=== PATIENT | female | born 1955 | race Caucasian/White ===

== ENCOUNTER 2016-12-14 09:25 | Emergency (ER) | payer MEDICAID, OTHER ==
[~2016-12-14] VITALS: Ht 154.9 cm; Wt 52.5 kg
[~2016-12-14 09:25] MED LIST: AMLO10 PO; CARV3.125 PO; CLON-352 PO; ELIP667T PO; RENATAB5 PO; SYNT25TA PO; TYLE500T PO
[2016-12-14 09:27] VITALS: BP 192/91; PULSE 83; RESP 15; TEMP 98.2; O2SAT 98
[2016-12-14 09:43] VITALS: BP 176/86; PULSE 77; RESP 18; O2SAT 98
[2016-12-14 09:51] VITALS: BP 176/86; PULSE 76; PULSE 77; RESP 18; O2SAT 99
[2016-12-14] MEDS ORDERED: DIALCAP PO (09:59)
[2016-12-14] MEDS ORDERED: AMLO10TA2 PO (09:59)
[2016-12-14] MEDS ORDERED: CALC667C (09:59)
[2016-12-14] MEDS ORDERED: LEVO25TA4 PO (09:59)
[2016-12-14] MEDS ORDERED: CARV3.12 PO (09:59)
[2016-12-14] MEDS ORDERED: CLON0.1T PO (09:59)
[2016-12-14] MEDS ORDERED: SODIUM CHLORIDE 0.9% FLUSH 10 ML FLUSH IVF PRN (10:00)
--- NOTE | 2016-12-14 10:04 | PD ---
HPI Chief Complaint: Abdominal Pain Time Seen by Provider: 09:48 Travel History International Travel<30 days: No Contact w/Intl Traveler<30days: No Traveled to known affect area: No History of Present Illness HPI This is a 61-year-old female with history of renal failure, dialysis dependent, presents today with complaints of nausea and loose stools 1 week. Patient reports she started with vomiting roughly 6-7 days ago. She said this is then followed by loose stools. She denies any watery stools. She states that she's been feeling weak. She feels as though she is dehydrated. She was scheduled to have dialysis today however was too weak to go. There is no reported fevers , chills. There is no reported cough. The patient states he makes very very little urine but denies any change in the urine output. PFSH Past Medical History Cancer: No Cardiovascular Problems: Yes (HTN ) Chest Pain: No Congestive Heart Failure: Yes Diabetes: No Endocrine: Yes Gastrointestinal Disorders: Yes GERD: No Genitourinary: No Hepatitis: No Hiatal Hernia: No Hypertension: Yes Immune Disorder: No Musculoskeletal: No Neurologic: No Reproductive: No Respiratory: No Renal Failure: Yes (L PERM CATH, R AV FISTULA) Thyroid Disease: Yes (LOW) Menopausal: Yes Past Surgical History AICD: No Joint Replacement: No Pacemaker: No Other Surgery: Yes Social History Alcohol Use: No Tobacco Use: No Substance Use: No Allergies-Medications (Allergen,Severity, Reaction): Coded Allergies: penicillin G (Unverified Allergy, Severe, 12/14/16) Reported Meds & Prescriptions Reported Meds & Active Scripts Active Zofran (Ondansetron HCl) 4 Mg Tab 4 Mg PO Q8HR PRN Reported Dialyvite Vitamin D 5000 (Cholecalciferol) 5,000 Unit Cap 5,000 Units PO DAILY Levothyroxine (Levothyroxine Sodium) 25 Mcg Tab 25 Mcg PO DAILY Clonidine (Clonidine HCl) 0.1 Mg Tab 0.1 Mg PO BID Carvedilol 3.125 Mg Tab 3.125 Mg PO BID Calcium Acetate (Calcium Acetate (Phosphate Bin) 667 Mg Cap Amlodipine (Amlodipine Besylate) 10 Mg Tab 10 Mg PO DAILY Review of Systems Except as stated in HPI: all other systems reviewed are Neg General / Constitutional: No: Fever, Chills HENT: No: Headaches, Neck Pain Cardiovascular: No: Chest Pain or Discomfort, Palpitations Respiratory: No: Cough, Shortness of Breath Gastrointestinal: Positive: Nausea, Vomiting, Diarrhea (loose stools), No: Abdominal Pain Genitourinary: Positive: Other (minimal urine output. This is not new. Patient is renal failure patient.), No: Flank Pain Musculoskeletal: Positive: Weakness (generalized), No: Pain Neurologic: Positive: Weakness (generalized), No: Dizziness, Headache Physical Exam Narrative GENERAL: Well-developed female in no acute distress. SKIN: Focused skin assessment warm/dry. HEAD: Atraumatic. Normocephalic. EYES: No scleral icterus. No injection or drainage. ENT: No nasal bleeding or discharge. Mucous membranes pink and moist. NECK: Trachea midline. Supple. CARDIOVASCULAR: Rate 103. Normal rhythm. No murmur appreciated. RESPIRATORY: No accessory muscle use. Coarse breath sounds heard at the left lung base. No true Rales. No wheezing. GASTROINTESTINAL: Abdomen soft, non-tender, nondistended. No rebound or guarding. MUSCULOSKELETAL: No obvious deformities. No clubbing. No cyanosis. No edema. NEUROLOGICAL: Awake and alert. No obvious cranial nerve deficits. Motor grossly within normal limits. Normal speech. PSYCHIATRIC: Appropriate mood and affect; insight and judgment normal. Data Data Last Documented VS Vital Signs Date Time Temp Pulse Resp B/P (MAP) Pulse Ox O2 Delivery O2 Flow Rate FiO2 12/14/16 09:51 76 18 176/86 (116) 99 Room Air 12/14/16 09:27 98.2 Orders Orders Complete Blood Count With Diff (12/14/16 09:48) Comprehensive Metabolic Panel (12/14/16 09:48) Lipase (12/14/16 09:48) Iv Access Insert/Monitor (12/14/16 09:48) Ecg Monitoring (12/14/16 09:48) Oximetry (12/14/16 09:48) Sodium Chloride 0.9% Flush (Ns Flush) (12/14/16 10:00) Chest, Single Ap (12/14/16 09:48) Sodium Chlorid 0.9% 500 Ml Inj (Ns 500 M (12/14/16 10:45) Labs Laboratory Tests Test 12/14/16 09:55 White Blood Count 7.3 TH/MM3 Red Blood Count 3.60 MIL/MM3 Hemoglobin 11.7 GM/DL Hematocrit 35.7 % Mean Corpuscular Volume 99.3 FL Mean Corpuscular Hemoglobin 32.6 PG Mean Corpuscular Hemoglobin Concent 32.9 % Red Cell Distribution Width 13.4 % Platelet Count 155 TH/MM3 Mean Platelet Volume 8.5 FL Neutrophils (%) (Auto) 82.6 % Lymphocytes (%) (Auto) 6.6 % Monocytes (%) (Auto) 6.8 % Eosinophils (%) (Auto) 2.7 % Basophils (%) (Auto) 1.3 % Neutrophils # (Auto) 6.0 TH/MM3 Lymphocytes # (Auto) 0.5 TH/MM3 Monocytes # (Auto) 0.5 TH/MM3 Eosinophils # (Auto) 0.2 TH/MM3 Basophils # (Auto) 0.1 TH/MM3 CBC Comment DIFF FINAL Differential Comment Blood Urea Nitrogen 57 MG/DL Creatinine 8.97 MG/DL Random Glucose 106 MG/DL Total Protein 7.1 GM/DL Albumin 3.8 GM/DL Calcium Level 9.8 MG/DL Alkaline Phosphatase 132 U/L Aspartate Amino Transf (AST/SGOT) 17 U/L Alanine Aminotransferase (ALT/SGPT) 21 U/L Total Bilirubin 0.8 MG/DL Sodium Level 140 MEQ/L Potassium Level 4.5 MEQ/L Chloride Level 103 MEQ/L Carbon Dioxide Level 25.6 MEQ/L Anion Gap 11 MEQ/L Estimat Glomerular Filtration Rate 4 ML/MIN Lipase 201 U/L [facility] Medical Decision Making Medical Screen Exam Complete: Yes Emergency Medical Condition: Yes Interpretation(s) Last 24 hours Impressions Chest X-Ray 12/14/16 0948 Signed Impressions: Service Date/Time: Wednesday, December 14, 2016 10:05 - CONCLUSION: 1. Cardiomegaly. 2. Focal convexity involving the right paraspinal soft tissues. I cannot exclude a mass. Consider CT of the thorax to further evaluate. 3. Clear lungs. Braydon Yost Jr., MD Differential Diagnosis Gastroenteritis versus foodborne illness versus pneumonia versus metabolic derangement Narrative Course 61-year-old female with a history of renal failure, presents here with complaints of nausea vomiting diarrhea over the last week. The patient now states that she's had several loose stools however not completely watery. She states she is much improved. She does report mild weakness and she is here today because of this purchase scheduled to have dialysis today. Laboratory tests show renal failure however there is normal potassium. The rest of her electrolytes and blood work appear within normal limits. She's been given 500 cc of normal saline. She states she feels much improved. She states she will arrange for dialysis. Patient has a nonspecific soft tissue density in her right paraspinous area. Recommendation is for a CT scan to better visualize. She'll be given an outpatient radiology form. She is also be given a prescription for Zofran in case her nausea returns. He is instructed to get the outpatient CT and follow up with her primary care doctor, Dr. Honeycutt. Diagnosis Primary Impression: Gastroenteritis Additional Impressions: Mild dehydration history of renal failure, dialysis dependent. nonspecific right paraspinous soft tissue density. Additional Instructions: Outpatient chest CT and follow up with primary care physician. Arranged for dialysis. Return if feeling worse. Scripts Ondansetron (Zofran) 4 Mg Tab 4 MG PO Q8HR Y for NAUSEA OR VOMITING, #20 TAB 0 Refills Prov: Byron Smith MD 12/14/16 Disposition: 01 DISCHARGE HOME Condition: Stable Byron Smith MD Dec 14, 2016 10:04
[2016-12-14 10:09] LABS: BASOPHIL # 0.1 TH/MM3 (0-0.2); BASOPHIL % 1.3 % (0.0-2.0); EOSINOPHIL # 0.2 TH/MM3 (0-0.4); EOSINOPHIL % 2.7 % (0.0-4.0); HEMATOCRIT 35.7 % (35.0-46.0); HEMO FLAGS DIFF FINAL; LYMPH % 6.6 % (9.0-44.0); LYMPHOCYTE # 0.5 TH/MM3 (1.0-4.8); MEAN CELL VOLUME 99.3 FL (80.0-100.0); MEAN CORPUSCULAR HEMOGLOBIN 32.6 PG (27.0-34.0); MEAN CORPUSCULAR HGB CONC 32.9 % (32.0-36.0); MONO % 6.8 % (0.0-8.0); NEUT % 82.6 % (16.0-70.0); PLATELET COUNT 155 TH/MM3 (150-450); RED CELL DISTRIBUTION WIDTH 13.4 % (11.6-17.2); WHITE BLOOD COUNT 7.3 TH/MM3 (4.0-11.0)
[2016-12-14 10:23] LABS: ANION GAP 11 MEQ/L (5-15); AST (GOT) 17 U/L (15-37); BICARBONATE 25.6 MEQ/L (21.0-32.0); BLOOD UREA NITROGEN 57 MG/DL (7-18); CHLORIDE 103 MEQ/L (98-107); GLOMERULAR FILTRATION RATE 4 ML/MIN (>89); POTASSIUM 4.5 MEQ/L (3.5-5.1); SODIUM (NA) 140 MEQ/L (136-145)
[2016-12-14 10:26] LABS: ALKALINE PHOSPHATASE 132 U/L (45-117); ALT (GPT) 21 U/L (10-53); TOTAL BILIRUBIN ADULT 0.8 MG/DL (0.2-1.0)
[2016-12-14] MEDS ORDERED: SODIUM CHLORID 0.9% 500 ML INJ 500 ML IV ONE (10:45)
--- NOTE | 2016-12-14 11:12 | RADRPT ---
EXAM DATE/TIME: 12/14/2016 10:05 [facility] COMPARISON: CHEST SINGLE AP, June 16, 2010, 12:47. INDICATIONS : Short of breath and nausea. MEDICAL HISTORY : None. SURGICAL HISTORY : None. ENCOUNTER: Initial ACUITY: 1 day PAIN SCORE: 0/10 LOCATION: Bilateral chest FINDINGS: A single portable frontal view the chest shows cardiomegaly which is a new finding. No pulmonary vasc ular engorgement seen. There is a focal convex to be involving the right paratracheal stripe behind t he heart. This is a new finding as well. The lungs are clear without infiltrate or effusion. No pneum othorax. Bony structures are unremarkable. CONCLUSION: 1. Cardiomegaly. 2. Focal convexity involving the right paraspinal soft tissues. I cannot exclude a mass. Consider CT of the thorax to further evaluate. 3. Clear lungs. Braydon Yost Jr., MD on December 14, 2016 at 10:43 Board Certified Radiologist. This report was verified electronically.
[2016-12-14] MEDS ORDERED: ZOFR4TAB PO (11:56)
[2016-12-14 12:04] VITALS: BP 164/82; PULSE 87; RESP 20; O2SAT 100
== END 2016-12-14 12:52 | disposition home or self-care (01) ==
LOC: NEPE 09:25
DX: K52.9 Noninfective gastroenteritis and colitis, unspecified (principal); I12.0 Hypertensive chronic kidney disease with stage 5 chronic kidney disease or end stage renal disease; N18.6 End stage renal disease; Z99.2 Dependence on renal dialysis
CPT/HCPCS: 71010; 80053; 83690; 85025; 99284; J7040

== ENCOUNTER 2017-10-04 08:45 | Observation (INO) | payer MEDICAID ==
[2017-10-04] VITALS (7 sets, daily range): BP systolic 152–180; BP diastolic 73–78; PULSE 66–73; RESP 16–18; TEMP 97.7–98.6; O2SAT 96–99
[~2017-10-04] VITALS: Ht 152.4 cm; Wt 52.5 kg
[~2017-10-04 08:45] MED LIST changes: -AMLO10 PO; +AMLO10TA2 PO; +CALC667C; +CARV3.12 PO; -CARV3.125 PO; -CLON-352 PO; +CLON0.1T PO; +DIALCAP PO; -ELIP667T PO; +LEVO25TA4 PO; -RENATAB5 PO; -SYNT25TA PO; -TYLE500T PO; +ZOFR4TAB PO
[2017-10-04] MEDS ORDERED: SODIUM CHLORIDE 0.9% FLUSH 10 ML FLUSH IVF PRN (10:00)
[2017-10-04] MEDS ORDERED: ACETAMINOPHEN 325 MG TAB PO ONE (10:00)
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
--- NOTE | 2017-10-04 10:42 | RADRPT ---
EXAM DATE: 10/04/2017 10:23 AM EDT AGE/SEX: 62 years / Female INDICATIONS: Left leg pain, no injury. CLINICAL DATA: This is the patient's initial encounter. Patient reports that signs and symptoms have been present for 3 days and indicates a pain score of 10/10. MEDICAL/SURGICAL HISTORY: None. None. COMPARISON: No prior exams available for comparison. FINDINGS: Bony structures are intact and in normal alignment. Osseous density is normal. There is focal soft ti ssue swelling at the anterior proximal lower leg. There appears to be diffuse subcutaneous edema. N o radiopaque foreign bodies seen. CONCLUSION: Soft tissue swelling. Electronically signed by: Vincenzo Romero MD 10/04/2017 10:41 AM EDT
--- NOTE | 2017-10-04 10:48 | RADRPT ---
EXAM DATE: 10/04/2017 10:38 AM EDT AGE/SEX: 62 years / Female INDICATIONS: Left leg swelling. CLINICAL DATA: This is the patient's initial encounter. Patient reports that signs and symptoms have been present for 1 week and indicates a pain score of 8/10. MEDICAL/SURGICAL HISTORY: Hypothyroidism. Hypertension. Anemia. Congestive heart failure. Poly cystic kidney disease. Pelvic mass. . Right AV fistula. Left perm cath. Axillary abscess drainage. COMPARISON: [facility], TIBIA/FIBULA LEFT (AP/LAT), 10/04/2017. . TECHNIQUE: Venous ultrasound of both lower extremities was performed from the inguinal ligament to t he proximal calf. Real-time, color Doppler and spectral tracing, compression and augmentation techni ques were used. FINDINGS: There is normal compression of the deep venous system from the inguinal region to the prox imal calf. No echogenic clot is seen. There is normal response of the venous system to augmentation a nd respiration. There is a 9.0 x 5.2 x 2.0 cm complex mass with central cystic change seen at the mid lateral lower l eg region. This does not have increased flow. There is a simple collection seen in the popliteal jaclyn a measuring 4.2 x 2.3 x 1.2 cm likely related to a Navarro's cyst. The technologist did not think the 2 masses were connected. CONCLUSION: 1. No DVT. 2. 9 cm complex mass in the mid lateral lower leg. This nonspecific. A hematoma would be most likely . An abscess cannot be excluded. 3. Navarro's cyst. Electronically signed by: Vincenzo Romero MD 10/04/2017 10:47 AM EDT
[2017-10-04 12:03] LABS: AUTOMATED NEUTROPHIL # 4.9 TH/MM3 (1.8-7.7); BASOPHIL # 0.1 TH/MM3 (0-0.2); EOSINOPHIL # 0.1 TH/MM3 (0-0.4); EOSINOPHIL % 1.2 % (0.0-4.0); HEMATOCRIT 28.3 % (35.0-46.0); HEMOGLOBIN 9.6 GM/DL (11.6-15.3); LYMPH % 7.5 % (9.0-44.0); LYMPHOCYTE # 0.5 TH/MM3 (1.0-4.8); MEAN CELL VOLUME 97.7 FL (80.0-100.0); MEAN CORPUSCULAR HGB CONC 33.7 % (32.0-36.0); MEAN PLATELET VOLUME 8.8 FL (7.0-11.0); MONO % 10.5 % (0.0-8.0); MONOCYTE # 0.6 TH/MM3 (0-0.9); NEUT % 79.8 % (16.0-70.0); PLATELET COUNT 150 TH/MM3 (150-450); RED CELL DISTRIBUTION WIDTH 15.2 % (11.6-17.2); WHITE BLOOD COUNT 6.1 TH/MM3 (4.0-11.0)
[2017-10-04 12:11] LABS: INTERNATIONAL NORMALIZED RATIO 1.2 RATIO; PROTHROMBIN TIME - PATIENT 12.5 SEC (9.8-11.6)
[2017-10-04 12:15] LABS: ALBUMIN 3.4 GM/DL (3.4-5.0); AST (GOT) 18 U/L (15-37); BICARBONATE 22.8 MEQ/L (21.0-32.0); BLOOD UREA NITROGEN 62 MG/DL (7-18); CALCIUM 11.2 MG/DL (8.5-10.1); CHLORIDE 105 MEQ/L (98-107); GLOMERULAR FILTRATION RATE 5 ML/MIN (>89); GLUCOSE,RANDOM 98 MG/DL (74-106); SODIUM (NA) 138 MEQ/L (136-145)
[2017-10-04 12:16] LABS: ALT (GPT) 16 U/L (10-53)
[2017-10-04 12:18] LABS: ALKALINE PHOSPHATASE 170 U/L (45-117); TOTAL BILIRUBIN ADULT 1.8 MG/DL (0.2-1.0)
--- NOTE | 2017-10-04 12:47 | PD ---
Physical Exam Date Seen by Provider: Oct 04, 2017 Time Seen by Provider: 12:43 Narrative 62-year-old female that presents to the ED for evaluation of left leg injury with possible infection. Case was signed out to me by Mame Nayak PA-C. I was asked to disposition patient pending blood work and imaging. Please refer to her note. Data Data Last Documented VS Vital Signs Date Time Temp Pulse Resp B/P (MAP) Pulse Ox O2 Delivery O2 Flow Rate FiO2 10/04/17 10:16 (102) 99 Room Air 10/04/17 10:15 98.5 66 18 Orders Orders Complete Blood Count With Diff (10/04/17 09:51) Comprehensive Metabolic Panel (10/04/17 09:51) Blood Culture (10/04/17 09:51) Iv Access Insert/Monitor (10/04/17 09:51) Ecg Monitoring (10/04/17 09:51) Oximetry (10/04/17 09:51) Us Leg Venous Doppler (10/04/17 09:51) Sodium Chloride 0.9% Flush (Ns Flush) (10/04/17 10:00) Acetaminophen (Tylenol) (10/04/17 10:00) Prothrombin Time / Inr (Pt) (10/04/17 09:51) Act Partial Throm Time (Ptt) (10/04/17 09:51) Tibia/Fibula (Ap/Lat) (10/04/17 ) Admit Order (Ed Use Only) (10/04/17 12:41) Labs Laboratory Tests Test 10/04/17 11:30 White Blood Count 6.1 TH/MM3 Red Blood Count 2.90 MIL/MM3 Hemoglobin 9.6 GM/DL Hematocrit 28.3 % Mean Corpuscular Volume 97.7 FL Mean Corpuscular Hemoglobin 33.0 PG Mean Corpuscular Hemoglobin Concent 33.7 % Red Cell Distribution Width 15.2 % Platelet Count 150 TH/MM3 Mean Platelet Volume 8.8 FL Neutrophils (%) (Auto) 79.8 % Lymphocytes (%) (Auto) 7.5 % Monocytes (%) (Auto) 10.5 % Eosinophils (%) (Auto) 1.2 % Basophils (%) (Auto) 1.0 % Neutrophils # (Auto) 4.9 TH/MM3 Lymphocytes # (Auto) 0.5 TH/MM3 Monocytes # (Auto) 0.6 TH/MM3 Eosinophils # (Auto) 0.1 TH/MM3 Basophils # (Auto) 0.1 TH/MM3 CBC Comment DIFF FINAL Differential Comment Prothrombin Time 12.5 SEC Prothromb Time International Ratio 1.2 RATIO Activated Partial Thromboplast Time 29.8 SEC Blood Urea Nitrogen 62 MG/DL Creatinine 7.60 MG/DL Random Glucose 98 MG/DL Total Protein 7.0 GM/DL Albumin 3.4 GM/DL Calcium Level 11.2 MG/DL Alkaline Phosphatase 170 U/L Aspartate Amino Transf (AST/SGOT) 18 U/L Alanine Aminotransferase (ALT/SGPT) 16 U/L Total Bilirubin 1.8 MG/DL Sodium Level 138 MEQ/L Potassium Level 4.8 MEQ/L Chloride Level 105 MEQ/L Carbon Dioxide Level 22.8 MEQ/L Anion Gap 10 MEQ/L Estimat Glomerular Filtration Rate 5 ML/MIN [facility] Medical Record Reviewed: Yes Supervised Visit with JUSTINO: No Interpretation(s) CBC & BMP Diagram 10/04/17 11:30 Total Protein 7.0, Albumin 3.4, Calcium Level 11.2 H, Alkaline Phosphatase 170 H , Aspartate Amino Transf (AST/SGOT) 18, Alanine Aminotransferase (ALT/SGPT) 16, Total Bilirubin 1.8 H Last Impressions Lower Extremity Ultrasound 10/04/17 0951 Signed Impressions: CONCLUSION: 1. No DVT. 2. 9 cm complex mass in the mid lateral lower leg. This nonspecific. A hematom a would be most likely. An abscess cannot be excluded. 3. Navarro's cyst. Tibia/Fibula X-Ray 10/04/17 0000 Signed Impressions: CONCLUSION: Soft tissue swelling. Differential Diagnosis Cellulitis versus abscess versus skin infection versus hematoma Narrative Course 62-year-old female who presents to the ED for evaluation of left leg infection. Patient was evaluated by previous provider. Please refer to her note. I was asked to disposition the patient pending labs and plan. Patient has a significant infection of her left leg. This appear to have some bruising likely from the injury but she does appear to have what appears to be cellulitis. He does have comorbidities including CKD on dialysis. Because of how impressive the infection appears to be on the leg at the recommend admission for IV antibiotics and further monitoring. Patient agrees with this. Case discussed with the residents who agreed to admission to the service. Ultrasound did show hematoma more likely than abscess. At this time I do not feel that the patient has an abscess on her leg but will likely need monitoring to see how well she responds to antibiotics. Diagnosis Primary Impression: Cellulitis Qualified Codes: L03.116 - Cellulitis of left lower limb Admitting Information Admitting Physician Requests: Observation Condition: Stable Vikram Bahena Oct 04, 2017 12:47
--- NOTE | 2017-10-04 12:52 | HHI.HP ---
HPI Service Family Medicine Primary Care Physician No Primary Care Physician Admission Diagnosis acute cellulitis left leg, CKD on dialysis Diagnoses: International Travel<30 Days: No Contact w/Intl Traveler<30days: No Known Affected Area: No History of Present Illness 62 y/o w/HTN and CKD presenting w/left leg swelling and pain. 11 days ago, was getting ready to go to dialysis w/[facility] (service w /Medicaid). When she was about to get out of the car, the door was accidently closed and slammed into her left leg. Only leg was injured. Gets dialysis @[facility]. Last got dialysis on Wednesday. Was supposed to get dialysis today. However, she was scared because her left leg from the knee- down was very painful - especially worse in the last week. When she was first injured, it started as abrasion w/mild bleeding. Three to 4 days later, became redder, swollen, and more painful. No drainage. No numbness or tingling. Able to move toes. Walking makes pain worse and sometimes results in loss of balance. Nothing makes it better. No fevers, chills, changes in urination, syncope, nausea or vomiting. Feels more fatigued. 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 PER ED NOTE: "62-year-old female with a history of renal failure on dialysis M, W, F presents to the emergency room for evaluation of left lower extremity redness, pain, and swelling for the past 11 days. Patient had her left lower leg slammed in the car door 11 days ago. Since then she has had persistent pain, bruising, and swelling. States it became red and hot a few days ago. She has been soaking it in Epsom salts and applying ice without relief in symptoms. She is also been taking Tylenol for pain without significant relief. She has been ambulatory since onset. Reports moderate pain, worse when she pushes on the area. She denies paresthesias." (Corrie Smart MD R1) Review of Systems Constitutional: DENIES: Fever, Change in appetite Endocrine: DENIES: Polyuria Eyes: DENIES: Vision loss Ears, nose, mouth, throat: DENIES: Hearing loss Respiratory: DENIES: Cough, Shortness of breath Cardiovascular: DENIES: Chest pain, Palpitations Gastrointestinal: DENIES: Constipation, Diarrhea, Nausea, Vomiting Genitourinary: DENIES: Urinary frequency Musculoskeletal: DENIES: Joint pain Integumentary: DENIES: Abnormal pigmentation Hematologic/lymphatic: DENIES: Bruising Immunologic/allergic: DENIES: Eczema Neurologic: DENIES: Localized weakness, Paresthesias, Poor Balance (Corrie Smart MD R1) Past Family Social History Past Medical History CKD: dialysis, L PERM CATH, R AV FISTULA HTN Hypothyroidism Past Surgical History None Reported Medications Reported Meds & Active Scripts Active Zofran (Ondansetron HCl) 4 Mg Tab 4 Mg PO Q8HR PRN Reported Levothyroxine (Levothyroxine Sodium) 25 Mcg Tab 25 Mcg PO DAILY Clonidine (Clonidine HCl) 0.1 Mg Tab 0.1 Mg PO BID Carvedilol 3.125 Mg Tab 3.125 Mg PO BID Calcium Acetate (Calcium Acetate (Phosphate Bin) 667 Mg Cap Amlodipine (Amlodipine Besylate) 10 Mg Tab 10 Mg PO DAILY (Corrie Smart MD R1) Allergies: Coded Allergies: penicillin G (Unverified Allergy, Severe, 12/14/16) Family History Mom: CKD Dad: alcoholism Social History Lives w/friend at [facility] in an independent facility. No smoking, drinking, or illicit/recreational drug use. Normal ADLs (Corrie Smart MD R1) Physical Exam Vital Signs Vital Signs Date Time Temp Pulse Resp B/P (MAP) Pulse Ox O2 Delivery O2 Flow Rate FiO2 10/04/17 10:16 (102) 99 Room Air 10/04/17 10:15 98.5 66 18 152/78 (102) 99 Room Air 10/04/17 09:08 73 10/04/17 08:49 98.6 73 16 161/73 (102) 98 Physical Exam GENERAL: This is a pale woman appearing older than her age resting comfortably in bed. SKIN: Redness and swelling of the left lower leg appearing over the front and back. Bruising noted at the lateral edges of the ankle. Some tenderness to palpation. Large mass below the knee that is firm. No fluctuance and drainage. Healing lesion at the center. Pitting edema L>R. Large AV fistula in place at the left arm. HEAD: Atraumatic. Normocephalic. EYES: Pupils equal round and reactive. Extraocular motions intact. ENT:Uvula midline. Airway patent. NECK: Trachea midline. CARDIOVASCULAR: Regular rate and rhythm without murmurs, gallops, or rubs. Murmur from fistula audible. RESPIRATORY: Clear to auscultation. Breath sounds equal bilaterally. No wheezes , rales, or rhonchi. GASTROINTESTINAL: Abdomen distended and slightly tympanic, + bowel sounds. Pt states this presentation is her norm. Umbilical hernia. MUSCULOSKELETAL: Extremities without clubbing, cyanosis, or edema. Good pulses. Able to move toes. Sensation intact. NEUROLOGICAL: Awake and alert. No focal deficits. Motor and sensory grossly within normal limits. Normal speech. Laboratory Laboratory Tests Test 10/04/17 11:30 White Blood Count 6.1 Red Blood Count 2.90 Hemoglobin 9.6 Hematocrit 28.3 Mean Corpuscular Volume 97.7 Mean Corpuscular Hemoglobin 33.0 Mean Corpuscular Hemoglobin Concent 33.7 Red Cell Distribution Width 15.2 Platelet Count 150 Mean Platelet Volume 8.8 Neutrophils (%) (Auto) 79.8 Lymphocytes (%) (Auto) 7.5 Monocytes (%) (Auto) 10.5 Eosinophils (%) (Auto) 1.2 Basophils (%) (Auto) 1.0 Neutrophils # (Auto) 4.9 Lymphocytes # (Auto) 0.5 Monocytes # (Auto) 0.6 Eosinophils # (Auto) 0.1 Basophils # (Auto) 0.1 CBC Comment DIFF FINAL Differential Comment Prothrombin Time 12.5 Prothromb Time International Ratio 1.2 Activated Partial Thromboplast Time 29.8 Blood Urea Nitrogen 62 Creatinine 7.60 Random Glucose 98 Total Protein 7.0 Albumin 3.4 Calcium Level 11.2 Alkaline Phosphatase 170 Aspartate Amino Transf (AST/SGOT) 18 Alanine Aminotransferase (ALT/SGPT) 16 Total Bilirubin 1.8 Sodium Level 138 Potassium Level 4.8 Chloride Level 105 Carbon Dioxide Level 22.8 Anion Gap 10 Estimat Glomerular Filtration Rate 5 Date/Time Source Procedure Growth Status 10/04/17 11:30 Blood Line Aerobic Blood Culture Pending Received 10/04/17 11:30 Blood Line Anaerobic Blood Culture Pending Received (Corrie Smart MD R1) Result Diagram: 10/04/17 1130 10/04/17 1130 Imaging Last Impressions Lower Extremity Ultrasound 10/04/17 0948 Signed Impressions: CONCLUSION: 1. No DVT. 2. 9 cm complex mass in the mid lateral lower leg. This nonspecific. A hematom a would be most likely. An abscess cannot be excluded. 3. Navarro's cyst. Tibia/Fibula X-Ray 10/04/17 0000 Signed Impressions: CONCLUSION: Soft tissue swelling. (Corrie Smart MD R1) Caprini VTE Risk Assessment Caprini VTE Risk Assessment: Mod/High Risk (score >= 2) Caprini Risk Assessment Model Point Value = 1 Point Value = 2 Point Value = 3 Point Value = 5 Age 41-60 Minor surgery BMI > 25 kg/m2 Swollen legs Varicose veins or History of unexplained or recurrent spontaneous Oral contraceptives or hormone replacement Sepsis (< 1 month) Serious lung disease, including pneumonia (< 1 month) Abnormal pulmonary function Acute myocardial infarction Congestive heart failure (< 1 month) History of inflammatory bowel disease Medical patient at bed rest Age 61-74 Arthroscopic surgery Major open surgery (> 45 min) Laparoscopic surgery (> 45 min) Malignancy Confined to bed (> 72 hours) Immobilizing plaster cast Central venous access Age >= 75 History of VTE Family history of VTE Factor V Leiden Prothrombin [id number] Lupus anticoagulant Anticardiolipin antibodies Elevated serum homocysteine Heparin-induced thrombocytopenia Other congenital or acquired thrombophilia Stroke (< 1 month) Elective arthroplasty Hip, pelvis, or leg fracture Acute spinal cord injury (< 1 month) Prophylaxis Regimen Total Risk Factor Score Risk Level Prophylaxis Regimen 0-1 Low Early ambulation 2 Moderate Order ONE of the following: *Sequential Compression Device (SCD) *Heparin 5000 units SQ BID 3-4 Higher Order ONE of the following medications: *Heparin 5000 units SQ TID *Enoxaparin/Lovenox 40 mg SQ daily (WT < 150 kg, CrCl > 30 mL/min) *Enoxaparin/Lovenox 30 mg SQ daily (WT < 150 kg, CrCl > 10-29 mL/min) *Enoxaparin/Lovenox 30 mg SQ BID (WT < 150 kg, CrCl > 30 mL/min) AND/OR *Sequential Compression Device (SCD) 5 or more Highest Order ONE of the following medications: *Heparin 5000 units SQ TID (Preferred with Epidurals) *Enoxaparin/Lovenox 40 mg SQ daily (WT < 150 kg, CrCl > 30 mL/min) *Enoxaparin/Lovenox 30 mg SQ daily (WT < 150 kg, CrCl > 10-29 mL/min) *Enoxaparin/Lovenox 30 mg SQ BID (WT < 150 kg, CrCl > 30 mL/min) AND *Sequential Compression Device (SCD) (Corrie Smart MD R1) Assessment and Plan Assessment and Plan 62 y/o F w/hx of CKD on dialysis being admitted for obs for treatment of left leg cellulitis. Nephrology consulted, conveyed treatment plan w/IV Vanc and arrangement of dialysis for today to allow for optimal treatment. Code Status FULL Discussed Condition With Dr. Kinney and Nephrology (Corrie Smart MD R1) Attending Attestation Patient seen and examined. Case reviewed and discussed with the resident team. Agree with plan of care as discussed with me and documented in the resident note. (Sofia Kinney MD) Problem List: (1) Cellulitis ICD Codes: L03.90 - Cellulitis, unspecified Status: Acute Plan: Nephrology consulted IV Vanc BID Pharm consult (2) Hypothyroidism ICD Codes: E03.9 - Hypothyroidism, unspecified Plan: Con't home levothyroxine (3) CKD (chronic kidney disease), stage V ICD Codes: N18.5 - Chronic kidney disease, stage 5 Plan: Dialysis MWF Nephrology consult (4) HTN (hypertension) ICD Codes: I10 - Essential (primary) hypertension Plan: Con't home meds clonidine BID, carvedilol, amlodipine (5) FEN Plan: Fluids: None Electrolytes: none Nutrition: Reg diet DVT prophy: W/dialysis (Corrie Smart MD R1) Problem Qualifiers (1) Cellulitis: Qualified Codes: L03.116 - Cellulitis of left lower limb Corrie Smart MD R1 Oct 04, 2017 12:52 Sofia Kinney MD Oct 04, 2017 15:03
[2017-10-04] MEDS ORDERED: BISACODYL 10 MG SUPP RECTAL PRN (13:30)
[2017-10-04] MEDS ORDERED: ACETAMINOPHEN 325 MG TAB PO PRN (13:30)
[2017-10-04] MEDS ORDERED: SENNOSIDES 8.6 MG TAB PO PRN (13:30)
[2017-10-04] MEDS ORDERED: Vancomycin Consult Pharmacy 1 EA OTHER SCH (13:30)
[2017-10-04] MEDS ORDERED: METOCLOPRAMIDE HCL 10 MG/2 ML VIAL IV PUSH PRN (13:30)
[2017-10-04] MEDS ORDERED: LACTULOSE SYRUP 20 GM/30 ML CUP PO PRN (13:30)
[2017-10-04] MEDS ORDERED: MAGNESIUM HYDROXIDE SUSP 30 ML CUP PO PRN (13:30)
[2017-10-04] MEDS ORDERED: NALOXONE HCL 0.4 MG/ML AMP IV PUSH PRN (13:30)
--- NOTE | 2017-10-04 13:58 | HHI.FPPN ---
Subjective Remarks Pt. seen and examined, discussed with Dr. Smart. This is a 62 yo female with known ESRD on dialysis MWF who, approximately 11 days ago, was being transported back to her independent living apartment and she reports that her left leg was injured by the vehicle door. since then she has been having increasing pain and swelling with significant bruising and extravasation of blood to the ankle, foot and toes. Today her leg was so painful she felt she couldn't go to dialysis, so presented to the ED. She has been taking ES Tylenol for the pain which helped some. She has not had fever or chills. See H&P for this admission for additional historical details. Objective Vitals Vital Signs Date Time Temp Pulse Resp B/P (MAP) Pulse Ox O2 Delivery O2 Flow Rate FiO2 10/04/17 10:16 (102) 99 Room Air 10/04/17 10:15 98.5 66 18 152/78 (102) 99 Room Air 10/04/17 09:08 73 10/04/17 08:49 98.6 73 16 161/73 (102) 98 Result Diagram: 10/04/17 1130 10/04/17 1130 Other Results Laboratory Tests Test 10/04/17 11:30 Red Blood Count 2.90 MIL/MM3 Hemoglobin 9.6 GM/DL Hematocrit 28.3 % Neutrophils (%) (Auto) 79.8 % Lymphocytes (%) (Auto) 7.5 % Monocytes (%) (Auto) 10.5 % Lymphocytes # (Auto) 0.5 TH/MM3 Prothrombin Time 12.5 SEC Blood Urea Nitrogen 62 MG/DL Creatinine 7.60 MG/DL Calcium Level 11.2 MG/DL Alkaline Phosphatase 170 U/L Total Bilirubin 1.8 MG/DL Estimat Glomerular Filtration Rate 5 ML/MIN Imaging Last Impressions Lower Extremity Ultrasound 10/04/17 0951 Signed Impressions: CONCLUSION: 1. No DVT. 2. 9 cm complex mass in the mid lateral lower leg. This nonspecific. A hematom a would be most likely. An abscess cannot be excluded. 3. Navarro's cyst. Tibia/Fibula X-Ray 10/04/17 0000 Signed Impressions: CONCLUSION: Soft tissue swelling. Objective Remarks O. CONSTITUTIONAL/GEN: normally nourished, in NAD. Looks > stated age. EYES: conjunctiva normal, PERRLA, EOMI. ENT: Many missing teeth. LUNGS: clear A-P, respiratory effort is normal. CARDIOVASCULAR: RR without murmur or gallop. No significant edema. GI/ABD: soft without masses, without organomegaly. BS + NEURO: No focal deficits. SKIN: Skin sallow HEME/LYMPH: no bruising, petechia or significant adenopathy MUSC: back is normal in appearance. Left leg below knee shows swelling and dark erythema with extravasation of blood to ankle, foot and toes. PSYCH/MENTAL STATUS: Alert and oriented x 3. A/P Assessment and Plan 62 yo with ESRD and hematoma vs cellulitis left lower extremity. See orders. Attending Attestation Patient seen and examined. Case reviewed and discussed with the resident team. Agree with plan of care as discussed with me. Problem List: (1) Cellulitis ICD Codes: L03.90 - Cellulitis, unspecified Status: Acute (2) Hypothyroidism ICD Codes: E03.9 - Hypothyroidism, unspecified (3) CKD (chronic kidney disease), stage V ICD Codes: N18.5 - Chronic kidney disease, stage 5 (4) HTN (hypertension) ICD Codes: I10 - Essential (primary) hypertension (5) FEN Problem Qualifiers (1) Cellulitis: Qualified Codes: L03.116 - Cellulitis of left lower limb Sofia Kinney MD Oct 04, 2017 13:58
[2017-10-04] MEDS ORDERED: SODIUM CHLOR 0.9% 1000 ML INJ 1,000 ML IV PRN (14:27)
[2017-10-04] MEDS ORDERED: SODIUM CHLOR 0.9% 1000 ML INJ 1,000 ML OTHER PRN (14:27)
[2017-10-04] MEDS ORDERED: NITROGLYCERIN 0.4 MG SL 25 TABS/BTL SL PRN (14:30)
[2017-10-04] MEDS ORDERED: HEPARIN SODIUM - IV 10,000 UNITS/10 ML VIAL PRN (14:30)
[2017-10-04] MEDS ORDERED: SODIUM CHLORIDE 0.9% FLUSH 10 ML FLUSH IV FLUSH PRN (14:30)
[2017-10-04] MEDS ORDERED: GENTAMICIN SULFATE 20 MG/2 ML VIAL OTHER PRN (14:30)
[2017-10-04] MEDS ORDERED: ONDANSETRON ODT 4 MG TAB PO PRN (14:30)
[2017-10-04] MEDS ORDERED: HEPARIN SODIUM - IV 10,000 UNITS/10 ML VIAL IV FLUSH PRN (14:30)
[2017-10-04] MEDS ORDERED: MANNITOL 12.5 GM/50 ML VIAL IV PRN (14:30)
[2017-10-04] MEDS ORDERED: diphenhydrAMINE HCL 25 MG CAP PO PRN (14:30)
[2017-10-04] MEDS ORDERED: cloNIDine HCL 0.1 MG TAB PO PRN (14:30)
[2017-10-04] MEDS ORDERED: ALBUMIN 25% INJ 100 ML IV PRN (14:30)
[2017-10-04] MEDS ORDERED: VANCOMYCIN INJ 800 MG in SODIUM CHLOR 0.9% 250 ML INJ 250 ML IV PRN (15:00)
[2017-10-04] MEDS ORDERED: VANCOMYCIN 1,000 MG/NS 250 ML IV ONE ×2 (16:00)
--- NOTE | 2017-10-04 16:38 | PD.CONS ---
HPI Service Nephrology Consult Requested By Reason for Consult ESRD on HD Primary Care Physician No Primary Care Physician History of Present Illness This is a very pleasant 62 y/o female who was admitted under observation status for left leg wound. She hit it on a car door last week, has increased edema and pain to lateral lower left leg. She dialyzes MWF, had treatment on Wednesday. We were consulted to assist with dialysis management, and she is seen during dialysis today. Her abdomen is distended, she reports this is normal for her. PMH includes anemia, metabolic bone disorder, hypothyroidism. Her serum calcium level is noted to be elevated today. (Tea Senior) Review of Systems Constitutional: COMPLAINS OF: Fatigue, DENIES: Fever Respiratory: DENIES: Shortness of breath Cardiovascular: DENIES: Chest pain Musculoskeletal: COMPLAINS OF: Muscle aches Integumentary: COMPLAINS OF: Abnormal pigmentation (Tea Senior) Past Family Social History Allergies: Coded Allergies: penicillin G (Unverified Allergy, Severe, 12/14/16) Past Medical History ESRD on HD MWF HTN Anemia Metabolic Bone Disorder Hypothyroidism Past Surgical History AVF left arm Reported Medications Levothyroxine (Levothyroxine Sodium) 25 Mcg Tab 25 Mcg PO DAILY Clonidine (Clonidine HCl) 0.1 Mg Tab 0.1 Mg PO BID Carvedilol 3.125 Mg Tab 3.125 Mg PO BID Calcium Acetate (Calcium Acetate (Phosphate Bin) 667 Mg Cap Amlodipine (Amlodipine Besylate) 10 Mg Tab 10 Mg PO DAILY Active Ordered Medications Current Medications Medications (Trade) Dose Ordered Sig/Umm Route Start Time Stop Time Status Last Admin (NS Flush) 2 ml UNSCH PRN IVF 10/04/17 10:00 (Norvasc) 10 mg DAILY PO 10/05/17 09:00 (Coreg) 3.125 mg BID PO 10/05/17 09:00 (Catapres) 0.1 mg BID PO 10/05/17 09:00 (Synthroid) 25 mcg DAILY PO 10/05/17 09:00 (Tylenol) 650 mg Q4H PRN PO 10/04/17 13:30 (Reglan Inj) 5 mg Q6H PRN IV PUSH 10/04/17 13:30 (Narcan Inj) 0.4 mg UNSCH PRN IV PUSH 10/04/17 13:30 (Milk Of Magnesia Liq) 30 ml Q12H PRN PO 10/04/17 13:30 (Senokot) 17.2 mg Q12H PRN PO 10/04/17 13:30 (Dulcolax Supp) 10 mg DAILY PRN RECTAL 10/04/17 13:30 (Lactulose Liq) 30 ml DAILY PRN PO 10/04/17 13:30 Pharmacy Profile Note 0 ml @ 0 mls/hr UNSCH OTHER 10/04/17 13:30 Sodium Chloride 1,000 ml @ 0 mls/hr Q0M PRN OTHER 10/04/17 14:27 (Heparin Inj) 8,000 units UNSCH PRN IV FLUSH 10/04/17 14:30 Sodium Chloride 1,000 ml @ 200 mls/hr Q5H PRN IV 10/04/17 14:27 Sodium Chloride 1,000 ml @ 0 mls/hr Q0M PRN OTHER 10/04/17 14:27 (Mannitol Inj) 12.5 gm UNSCH PRN IV 10/04/17 14:30 Albumin Human 100 ml @ 60 mls/hr UNSCH PRN IV 10/04/17 14:30 (NS Flush) 5 ml UNSCH PRN IV FLUSH 10/04/17 14:30 (Heparin Inj) UNSCH PRN .XX 10/04/17 14:30 (Gentamicin Inj) 20 mg UNSCH PRN OTHER 10/04/17 14:30 (Tylenol) 650 mg UNSCH PRN PO 10/04/17 14:30 (Benadryl) 25 mg UNSCH PRN PO 10/04/17 14:30 (Nitrostat Sl) 0.4 mg UNSCH PRN SL 10/04/17 14:30 (Catapres) 0.1 mg UNSCH PRN PO 10/04/17 14:30 (Epogen Inj) 10,000 units UNSCH PRN IV PUSH 10/04/17 14:30 (Gelfoam 12 Mm/7 Mm Top) 1 foam UNSCH PRN TOP 10/04/17 14:30 (Zofran Odt) 4 mg Q4H PRN PO 10/04/17 14:30 Vancomycin HCl 1000 mg/Sodium Chloride 250 ml @ 250 mls/hr ONCE ONCE IV 10/04/17 16:00 10/04/17 16:59 Family History Non contributory Social History No smoking history Single, lives with a friend Ambulatory Full code (Tea Senior) Physical Exam Vital Signs Vital Signs Date Time Temp Pulse Resp B/P (MAP) Pulse Ox O2 Delivery O2 Flow Rate FiO2 10/04/17 14:39 68 18 163/77 (105) 97 10/04/17 13:58 97.7 71 16 163/77 (105) 97 Room Air 21 10/04/17 10:16 (102) 99 Room Air 10/04/17 10:15 98.5 66 18 152/78 (102) 99 Room Air 10/04/17 09:08 73 10/04/17 08:49 98.6 73 16 161/73 (102) 98 Physical Exam Elderly female, seen during dialysis Left arm AVF accessed during HD S1/S2, RRR no murmurs Lungs clear in all hunter Abd distended, ? ascites, non tender, normal bowel sounds No edema noted; left leg (lateral), has hematoma with surrounding bruising/ erythema Laboratory Laboratory Tests Test 10/04/17 11:30 White Blood Count 6.1 Red Blood Count 2.90 Hemoglobin 9.6 Hematocrit 28.3 Mean Corpuscular Volume 97.7 Mean Corpuscular Hemoglobin 33.0 Mean Corpuscular Hemoglobin Concent 33.7 Red Cell Distribution Width 15.2 Platelet Count 150 Mean Platelet Volume 8.8 Neutrophils (%) (Auto) 79.8 Lymphocytes (%) (Auto) 7.5 Monocytes (%) (Auto) 10.5 Eosinophils (%) (Auto) 1.2 Basophils (%) (Auto) 1.0 Neutrophils # (Auto) 4.9 Lymphocytes # (Auto) 0.5 Monocytes # (Auto) 0.6 Eosinophils # (Auto) 0.1 Basophils # (Auto) 0.1 CBC Comment DIFF FINAL Differential Comment Prothrombin Time 12.5 Prothromb Time International Ratio 1.2 Activated Partial Thromboplast Time 29.8 Blood Urea Nitrogen 62 Creatinine 7.60 Random Glucose 98 Total Protein 7.0 Albumin 3.4 Calcium Level 11.2 Alkaline Phosphatase 170 Aspartate Amino Transf (AST/SGOT) 18 Alanine Aminotransferase (ALT/SGPT) 16 Total Bilirubin 1.8 Sodium Level 138 Potassium Level 4.8 Chloride Level 105 Carbon Dioxide Level 22.8 Anion Gap 10 Estimat Glomerular Filtration Rate 5 Date/Time Source Procedure Growth Status 10/04/17 11:30 Blood Line Aerobic Blood Culture Pending Received 10/04/17 11:30 Blood Line Anaerobic Blood Culture Pending Received (Tea Senior) Result Diagram: 10/04/17 1130 10/04/17 1130 Imaging Last 72 hours Impressions Lower Extremity Ultrasound 10/04/17 0951 Signed Impressions: CONCLUSION: 1. No DVT. 2. 9 cm complex mass in the mid lateral lower leg. This nonspecific. A hematom a would be most likely. An abscess cannot be excluded. 3. Navarro's cyst. Tibia/Fibula X-Ray 10/04/17 0000 Signed Impressions: CONCLUSION: Soft tissue swelling. (Tea Senior) Assessment and Plan Problem List: (1) ESRD (end stage renal disease) on dialysis ICD Codes: N18.6 - End stage renal disease; Z99.2 - Dependence on renal dialysis Plan: Seen during dialysis today on a 2K, 350 BFR, goal 1.5L Continue HD MWF Calcium is high. Calcium acetate not resumed. Check phosphorus level in AM. Use 2.5 Ca bath today with HD. Avoid IVF administration Labs ordered for tomorrow. (2) Hematoma of leg ICD Codes: S80.10XA - Contusion of unspecified lower leg, initial encounter Plan: s/p trauma Decision was made not to drain per patient Given vancomycin, monitor levels Imaging reviewed PRN Tylenol for pain control (3) Anemia ICD Codes: D64.9 - Anemia, unspecified Plan: Epogen has been ordered with dialysis (4) Bone metabolism disorder ICD Codes: E88.9 - Metabolic disorder, unspecified; M90.80 - Osteopathy in diseases classified elsewhere, unspecified site Plan: Hold calcium acetate due to hypercalcemia. She is intolerant to most other phosphorus binders. Phosphorus level ordered for AM. (5) HTN (hypertension) ICD Codes: I10 - Essential (primary) hypertension Plan: Home medications were resumed including Coreg, Norvasc, clonidine. (6) Hypothyroidism ICD Codes: E03.9 - Hypothyroidism, unspecified Plan: On Synthroid (Tea Seinor) Assessment and Plan patient was seen and examined. Agree with above assessment and plan. (Jose Francisco Jones MD) Tea Senior Oct 04, 2017 16:38 Jose Fracnisco Jones MD Oct 05, 2017 10:57
[2017-10-04] MEDS: GELATIN 12 MM/7 MM FOAM TOP PRN (17:05)
[2017-10-04] MEDS: EPOETIN ALFA 10,000 UNITS/ML VIAL IV PUSH PRN (17:05)
[2017-10-04] MEDS: SODIUM CHLOR 0.9% 1000 ML INJ 1,000 ML OTHER PRN (18:05)
[2017-10-05 00:50] VITALS: BP 129/60; PULSE 67; RESP 18; TEMP 98.4; O2SAT 93
[2017-10-05 04:40] VITALS: BP 152/70; PULSE 68; RESP 17; TEMP 98.5; O2SAT 94
[2017-10-05] MEDS: LEVOTHYROXINE SODIUM 25 MCG TAB PO SCH (07:26)
[2017-10-05 07:27] VITALS: BP 141/68; PULSE 70; RESP 18; TEMP 98.9; O2SAT 94
[2017-10-05 07:30] LABS: AUTOMATED NEUTROPHIL # 4.1 TH/MM3 (1.8-7.7); BASOPHIL # 0.1 TH/MM3 (0-0.2); BASOPHIL % 1.1 % (0.0-2.0); EOSINOPHIL # 0.1 TH/MM3 (0-0.4); EOSINOPHIL % 1.6 % (0.0-4.0); HEMATOCRIT 27.6 % (35.0-46.0); HEMOGLOBIN 9.3 GM/DL (11.6-15.3); LYMPH % 8.3 % (9.0-44.0); LYMPHOCYTE # 0.4 TH/MM3 (1.0-4.8); MEAN CELL VOLUME 97.8 FL (80.0-100.0); MEAN CORPUSCULAR HEMOGLOBIN 32.9 PG (27.0-34.0); MEAN CORPUSCULAR HGB CONC 33.6 % (32.0-36.0); MEAN PLATELET VOLUME 8.5 FL (7.0-11.0); MONO % 10.9 % (0.0-8.0); MONOCYTE # 0.6 TH/MM3 (0-0.9); NEUT % 78.1 % (16.0-70.0); PLATELET COUNT 146 TH/MM3 (150-450); RED BLOOD COUNT 2.83 MIL/MM3 (4.00-5.30); RED CELL DISTRIBUTION WIDTH 14.9 % (11.6-17.2); WHITE BLOOD COUNT 5.3 TH/MM3 (4.0-11.0)
[2017-10-05 08:02] LABS: BICARBONATE 28.6 MEQ/L (21.0-32.0); CALCIUM 9.4 MG/DL (8.5-10.1); CREATININE 4.91 MG/DL (0.50-1.00); PHOSPHORUS 1.9 MG/DL (2.5-4.9)
[2017-10-05] MEDS: CARVEDILOL 3.125 MG TAB PO SCH ×2 (09:00→20:32)
[2017-10-05] MEDS: cloNIDine HCL 0.1 MG TAB PO SCH ×2 (09:00→20:32)
[2017-10-05] MEDS: ACETAMINOPHEN 325 MG TAB PO PRN ×2 (09:02→20:35)
--- NOTE | 2017-10-05 10:46 | HHI.NPPN ---
Subjective General Problems: Anemia Renal Failure: Chronic, End Stage Renal Disease Interval History Eating breakfast. May need left leg hematoma drained. (Tea Senior) Objective Data Data 10/05/17 10/06/17 19:00 07:00 # Voids 3 Vital Signs Date Time Temp Pulse Resp B/P (MAP) Pulse Ox O2 Delivery O2 Flow Rate FiO2 10/05/17 07:27 98.9 70 18 141/68 (92) 94 10/05/17 04:40 98.5 68 17 152/70 (97) 94 10/05/17 00:50 98.4 67 18 129/60 (83) 93 10/04/17 22:12 96 10/04/17 20:11 98.4 73 17 180/77 (111) 96 10/04/17 14:39 68 18 163/77 (105) 97 10/04/17 13:58 97.7 71 16 163/77 (105) 97 Room Air 21 (Tea Senior) -: 10/05/17 0610 10/05/17 0610 Microbiology 10/04/17 Aerobic Blood Culture, Received Pending 10/04/17 Anaerobic Blood Culture, Received Pending 10/04/17 Aerobic Blood Culture, Received Pending 10/04/17 Anaerobic Blood Culture, Received Pending Imaging Last 72 hours Impressions Lower Extremity Ultrasound 10/04/17 0951 Signed Impressions: CONCLUSION: 1. No DVT. 2. 9 cm complex mass in the mid lateral lower leg. This nonspecific. A hematom a would be most likely. An abscess cannot be excluded. 3. Navarro's cyst. Tibia/Fibula X-Ray 10/04/17 0000 Signed Impressions: CONCLUSION: Soft tissue swelling. (Tea Senior) Physical Exam General Appearance: Well Developed, Comfortable, Malnourished (Tea Senior) Throat Throat Exam: Oral Mucosa [place] & Moist (Tea Senior) Neck Neck Exam: Neck Supple (Tea Senior) Pulmonary Resp Exam: Clear Bilaterally, Breath Sounds Equal (Tea Senior) Cardiology CV Exam: Regular, Normal Sinus Rhythm (Tea Senior) Gastrointestinal/Abdomen GI Exam: Soft, Non-Tender, Bowel Sounds Present (Tea Senior) Genitourinary Exam: Clear Urine (Tea Senior) Musculoskeletal MS Exam: Joints Intact, Normal Tone (Tea Senior) Integumentary Skin Exam: Warm, Dry Skin Remarks left leg with erythema, pain, hematoma, sensitive to palpation (Tea Senior) Extremeties Extremities Exam: No Edema, Pedal Pulses Palpable (Tea Senior) Neurologic Neuro Exam: Alert, Awake, Oriented, Speech Clear, Moving All Extremities (Tea Senior) Psychiatric Psych Exam: Appropriate Responses (Tea Senior) Assessment/Plan Discussed Condition With: Patient Assessment Summary: Anemia of CKD, End Stage Renal Disease Problem List: (1) ESRD (end stage renal disease) on dialysis ICD Codes: N18.6 - End stage renal disease; Z99.2 - Dependence on renal dialysis Plan: Continue HD MWF. Due tomorrow if still admitted. Repeat calcium is better. Avoid IVF administration Intermittently monitor electrolytes. High protein diet ordered. (2) Hematoma of leg ICD Codes: S80.10XA - Contusion of unspecified lower leg, initial encounter Plan: s/p trauma Plan to drain. Given vancomycin, monitor levels Imaging reviewed PRN Tylenol for pain control (3) Anemia ICD Codes: D64.9 - Anemia, unspecified Plan: Epogen has been ordered with dialysis (4) Bone metabolism disorder ICD Codes: E88.9 - Metabolic disorder, unspecified; M90.80 - Osteopathy in diseases classified elsewhere, unspecified site Plan: Low phosphorus, advised to hold calcium acetate until . She is intolerant to most other phosphorus binders. (5) HTN (hypertension) ICD Codes: I10 - Essential (primary) hypertension Status: Chronic Plan: Home medications were resumed including Coreg, Norvasc, clonidine. (6) Hypothyroidism ICD Codes: E03.9 - Hypothyroidism, unspecified Status: Chronic Plan: On Synthroid Plan If discharged, we will follow in CKD clinic. (Tea Senior) Plan patient was seen and examined. Had dialysis yesterday. Suggest Orthopedic consult. Needs CT/MRI of the leg. She reported that she has a metallic implant in the chest and cannot have MRI. (Jose Francisco Jones MD) Tea Senior Oct 05, 2017 10:46 Jose Francisco Jones MD Oct 05, 2017 15:21
--- NOTE | 2017-10-05 13:03 | HHI.FPPN ---
Subjective Remarks Patient seen, examined and discussed with the medicine team. Today, she thinks that the swelling is a little bit less but her pain seems to be worse. She did get dialysis yesterday. She eats a regular diet when in the hospital, when at home she is more careful with her protein. Objective Vitals Vital Signs Date Time Temp Pulse Resp B/P (MAP) Pulse Ox O2 Delivery O2 Flow Rate FiO2 10/05/17 07:27 98.9 70 18 141/68 (92) 94 10/05/17 04:40 98.5 68 17 152/70 (97) 94 10/05/17 00:50 98.4 67 18 129/60 (83) 93 10/04/17 22:12 96 10/04/17 20:11 98.4 73 17 180/77 (111) 96 10/04/17 14:39 68 18 163/77 (105) 97 10/04/17 13:58 97.7 71 16 163/77 (105) 97 Room Air 21 I/O 10/04/17 10/04/17 10/04/17 10/05/17 10/05/17 10/05/17 07:00 15:00 23:00 07:00 15:00 23:00 Output Total 1500 ml Balance -1500 ml Output Hemodialysis 1500 ml # Voids 3 Result Diagram: 10/05/17 0610 10/05/17 0610 Objective Remarks O. CONSTITUTIONAL/GEN: normally nourished, in NAD. Looks > stated age. EYES: conjunctiva normal, PERRLA, EOMI. ENT: Many missing teeth. LUNGS: clear A-P, respiratory effort is normal. CARDIOVASCULAR: RR without murmur or gallop. No significant edema. GI/ABD: soft without masses, without organomegaly. BS + NEURO: No focal deficits. SKIN: Skin sallow HEME/LYMPH: no bruising, petechia or significant adenopathy MUSC: back is normal in appearance. Left leg below knee shows swelling and dark erythema with extravasation of blood to ankle, foot and toes. Perhaps slightly less swelling today but it feels a bit fluctuant. PSYCH/MENTAL STATUS: Alert and oriented x 3. A/P Assessment and Plan 62 y/o F w/hx of CKD on dialysis being admitted for obs for treatment of left leg cellulitis versus abscess versus hematoma. Nephrology consulted, conveyed treatment plan w/IV Vanc and arrangement of dialysis for today to allow for optimal treatment. Problem List: (1) Cellulitis ICD Codes: L03.90 - Cellulitis, unspecified Status: Acute Plan: Nephrology consulted and hemodialysis was done on 6-18 IV Vanc BID Pharm consult MRI today to determine whether or not incision and drainage would be appropriate. (2) Hypothyroidism ICD Codes: E03.9 - Hypothyroidism, unspecified Status: Chronic Plan: Con't home levothyroxine (3) CKD (chronic kidney disease), stage V ICD Codes: N18.5 - Chronic kidney disease, stage 5 Status: Chronic Plan: Dialysis MWF Nephrology consult (4) HTN (hypertension) ICD Codes: I10 - Essential (primary) hypertension Status: Chronic Plan: Con't home meds clonidine BID, carvedilol, amlodipine (5) FEN Status: Chronic Plan: Fluids: None Electrolytes: none Nutrition: Reg diet DVT prophy: W/dialysis Problem Qualifiers (1) Cellulitis: Qualified Codes: L03.116 - Cellulitis of left lower limb Sofia Kinney MD Oct 05, 2017 13:03
[2017-10-05 13:28] VITALS: BP 135/74; PULSE 62; RESP 16; TEMP 98.5; O2SAT 96
--- NOTE | 2017-10-05 15:37 | RADRPT ---
EXAM DATE: 10/05/2017 3:16 PM EDT AGE/SEX: 62 years / Female INDICATIONS: Cellulitis. CLINICAL DATA: This is the patient's initial encounter. Patient reports that signs and symptoms have been present for 2 days and indicates a pain score of 3/10. MEDICAL/SURGICAL HISTORY: Hypertension. Anemia. Polycystic kidney disease. . Kidney stents. F istula left arm. COMPARISON: [facility] – [place] LEG LEFT VENOUS DOPPLER, 10/04/2017. . TECHNIQUE: Multiplanar, multisequence MRI examination was performed without contrast. FINDINGS: In the anterior and lateral aspect of the leg near the mid aspect there is a heterogeneous subcutaneo us abnormality demonstrating areas of increased T1 signal and areas of decreased and increased T2 sig nal measuring approximately 6.8 x 2.4 x 9.2 cm. It is located superficial to the anterior compartment in the subcutaneous tissues. There is diffuse subcutaneous edema throughout the left leg. There is a muscular and fascial edema in volving all compartments. Bone marrow signal within the tibia and fibula are normal. Moderate size timothy int effusion is identified at the knee joint with a Navarro's cyst posteriorly. CONCLUSION: 1. Abnormal subcutaneous collection at the anterior and anterolateral aspect of the mid left leg elías suring 6.8 x 2.2 x 9.2 cm. Imaging features on this noncontrast examination are strongly suggestive o f a hematoma. Suggest follow-up imaging and clinical follow-up to confirm resolution. 2. Severe diffuse subcutaneous edema throughout the left leg with moderate size joint effusion. Electronically signed by: Vincenzo Martinez MD 10/05/2017 3:36 PM EDT
[2017-10-05] MEDS: VITAMIN B CMPLX/VITC/FOLIC AC CAP PO SCH (16:23)
[2017-10-05 17:04] VITALS: BP 137/70; PULSE 68; RESP 18; TEMP 98.7; O2SAT 98
[2017-10-05] MEDS: CALCIUM ACETATE 667 MG CAP PO SCH (18:48)
[2017-10-05 20:47] VITALS: BP 139/78; PULSE 72; RESP 17; TEMP 98.5; O2SAT 93
[2017-10-06] VITALS (7 sets, daily range): BP systolic 126–149; BP diastolic 64–75; PULSE 64–76; RESP 12–18; TEMP 97.6–98.6; O2SAT 91–99
[2017-10-06] MEDS: ACETAMINOPHEN 325 MG TAB PO PRN ×2 (05:05→21:37)
[2017-10-06] MEDS: LEVOTHYROXINE SODIUM 25 MCG TAB PO SCH (08:14)
[2017-10-06] MEDS: VITAMIN B CMPLX/VITC/FOLIC AC CAP PO SCH (08:15)
[2017-10-06] MEDS: cloNIDine HCL 0.1 MG TAB PO SCH ×2 (08:15→21:31)
[2017-10-06] MEDS: CARVEDILOL 3.125 MG TAB PO SCH ×2 (08:15→21:31)
[2017-10-06 09:44] LABS: HEMATOCRIT 30.3 % (35.0-46.0); HEMOGLOBIN 10.1 GM/DL (11.6-15.3); MEAN CELL VOLUME 98.8 FL (80.0-100.0); MEAN CORPUSCULAR HGB CONC 33.4 % (32.0-36.0); MEAN PLATELET VOLUME 8.8 FL (7.0-11.0); PLATELET COUNT 186 TH/MM3 (150-450); RED BLOOD COUNT 3.07 MIL/MM3 (4.00-5.30); RED CELL DISTRIBUTION WIDTH 14.6 % (11.6-17.2); WHITE BLOOD COUNT 6.1 TH/MM3 (4.0-11.0)
[2017-10-06 10:17] LABS: BICARBONATE 28.6 MEQ/L (21.0-32.0); CALCIUM 9.7 MG/DL (8.5-10.1); CREATININE 6.33 MG/DL (0.50-1.00); RANDOM VANCOMYCIN 7.4 COMMENT
--- NOTE | 2017-10-06 11:25 | HHI.FPPN ---
Subjective Remarks Patient states that she is doing well, nervous for abscess drainage today Received dialysis yesterday, 1.5 L were removed per hospital documentation No chest pain or shortness of breath Left leg continues to be significantly painful to touch. Able to move toes, sensation intact. (Corrie Smart MD R1) Objective Vitals Vital Signs Date Time Temp Pulse Resp B/P (MAP) Pulse Ox O2 Delivery O2 Flow Rate FiO2 10/06/17 07:58 97.6 66 14 146/70 (95) 94 10/06/17 04:25 98.2 65 17 134/75 (94) 95 10/06/17 00:14 98.4 65 17 144/64 (90) 92 10/05/17 20:47 98.5 72 17 139/78 (98) 93 10/05/17 17:04 98.7 68 18 137/70 (92) 98 10/05/17 13:28 98.5 62 16 135/74 (94) 96 I/O 10/05/17 10/05/17 10/05/17 10/06/17 10/06/17 10/06/17 07:00 15:00 23:00 07:00 15:00 23:00 Intake Total 60 ml Balance 60 ml Intake Oral 60 ml # Voids 3 2 (Corrie Smart MD R1) Result Diagram: 10/06/17 0900 10/06/17 0900 Objective Remarks O. CONSTITUTIONAL/GEN: normally nourished, in NAD. Looks > stated age. EYES: conjunctiva normal, PERRLA, EOMI. ENT: Many missing teeth. LUNGS: clear A-P, respiratory effort is normal. CARDIOVASCULAR: RR without murmur or gallop. No significant edema. GI/ABD: soft without masses, without organomegaly. BS + NEURO: No focal deficits. SKIN: Skin sallow HEME/LYMPH: no bruising, petechia or significant adenopathy MUSC: Left leg below knee shows swelling and dark erythema with extravasation of blood to ankle, foot and toes-improved from yesterday's exam. Increased fluctuance at the site of swelling. PSYCH/MENTAL STATUS: Alert and oriented x 3. (Corrie Smart MD R1) A/P Assessment and Plan 62 y/o F w/hx of CKD on dialysis being admitted to obs for treatment of left leg swelling. Receiving dialysis while inpatient. On admission, patient did not have an elevated white count. Did have left shift which may have been due to stress versus infection. Has a consistently elevated BUN, may contribute to platelet dysfunction and therefore increased bleeding. May account for the worsening redness and swelling on presentation. Suspicion is more for hematoma rather than a cellulitis at this time, although patient has shown improvement with IV vancomycin. Considering discontinuing vancomycin after drainage and planning for discharge. Will follow up hematology's recommendations. Discharge Planning Plan for discharge after drainage, may be likely tomorrow (Corrie Smart MD R1) Attending Attestation Patient seen and examined. Case reviewed and discussed with the resident team. Agree with plan of care as discussed with me and documented in the resident note. (Sofia Kinney MD) Problem List: (1) Hematoma of leg ICD Codes: S80.10XA - Contusion of unspecified lower leg, initial encounter Plan: Plan for abscess/hematoma drainage today with interventional radiology Improvement in redness and swelling Nephrology consulted for arranging dialysis IV Vanc BID for suspected infection (2) Hypothyroidism ICD Codes: E03.9 - Hypothyroidism, unspecified Status: Chronic Plan: Con't home levothyroxine (3) CKD (chronic kidney disease), stage V ICD Codes: N18.5 - Chronic kidney disease, stage 5 Status: Chronic Plan: Dialysis [facility] Nephrology consult (4) HTN (hypertension) ICD Codes: I10 - Essential (primary) hypertension Status: Chronic Plan: Con't home meds clonidine BID, carvedilol, amlodipine (5) FEN Status: Chronic Plan: Fluids: None Electrolytes: none Nutrition: Reg diet DVT prophy: W/dialysis Discussed with Dr. Lay (Corrie Smart MD R1) Corrie Smart MD R1 Oct 06, 2017 11:25 Sofia Kinney MD Oct 06, 2017 11:34
--- NOTE | 2017-10-06 11:41 | HHI.NPPN ---
Subjective General Problems: Anemia Renal Failure: Chronic, End Stage Renal Disease Interval History NPO for hematoma drainage today. Due for dialysis. (Tea Senior) Objective Data Data Vital Signs Date Time Temp Pulse Resp B/P (MAP) Pulse Ox O2 Delivery O2 Flow Rate FiO2 10/06/17 11:20 98.6 64 18 126/73 (90) 94 10/06/17 07:58 97.6 66 14 146/70 (95) 94 10/06/17 04:25 98.2 65 17 134/75 (94) 95 10/06/17 00:14 98.4 65 17 144/64 (90) 92 10/05/17 20:47 98.5 72 17 139/78 (98) 93 10/05/17 17:04 98.7 68 18 137/70 (92) 98 10/05/17 13:28 98.5 62 16 135/74 (94) 96 (Tea Senior) -: 10/06/17 0900 10/06/17 0900 Physical Exam General Appearance: Well Developed, No Acute Distress, Comfortable, Malnourished (Tea Senior) Throat Throat Exam: Oral Mucosa [place] & Moist (Tea Senior) Neck Neck Exam: Neck Supple (Tea Senior) Pulmonary Resp Exam: Clear Bilaterally, Breath Sounds Equal (Tea Senior) Cardiology CV Exam: Regular, Normal Sinus Rhythm (Tea Senior) Gastrointestinal/Abdomen GI Exam: Soft, Non-Tender, Bowel Sounds Present (Tea Senior) Genitourinary Exam: Clear Urine (Tea Senior) Musculoskeletal MS Exam: Joints Intact, Normal Tone (Tea Senior) Integumentary Skin Exam: Warm, Dry Skin Remarks left leg with erythema, pain, hematoma, sensitive to palpation (Tea Senior) Extremeties Extremities Exam: No Edema, Pedal Pulses Palpable (Tea Senior) Neurologic Neuro Exam: Alert, Awake, Oriented, Speech Clear, Moving All Extremities (Tea Senior) Psychiatric Psych Exam: Appropriate Responses (Tea Senior) Assessment/Plan Discussed Condition With: Patient Assessment Summary: Anemia of CKD, End Stage Renal Disease Problem List: (1) ESRD (end stage renal disease) on dialysis ICD Codes: N18.6 - End stage renal disease; Z99.2 - Dependence on renal dialysis Plan: Continue HD MWF. Due today. Intermittent monitor labs. Avoid IVF administration High protein diet ordered if not NPO. AVF is patent. Outpatient HD arrangements in place at [place]. (2) Hematoma of leg ICD Codes: S80.10XA - Contusion of unspecified lower leg, initial encounter Plan: s/p trauma Plan to drain in IR today. Off antibiotics. MRI reviewed. PRN Tylenol for pain control (3) Anemia ICD Codes: D64.9 - Anemia, unspecified Plan: Epogen has been ordered with dialysis (4) Bone metabolism disorder ICD Codes: E88.9 - Metabolic disorder, unspecified; M90.80 - Osteopathy in diseases classified elsewhere, unspecified site Plan: Low phosphorus, holding calcium acetate for now. She is intolerant to most other phosphorus binders. (5) HTN (hypertension) ICD Codes: I10 - Essential (primary) hypertension Status: Chronic Plan: Home medications were resumed including Coreg, Norvasc, clonidine. (6) Hypothyroidism ICD Codes: E03.9 - Hypothyroidism, unspecified Status: Chronic Plan: On Synthroid Plan (Tea Senior) Plan patient was seen and examined. Agree with above assessment and plan. (Jose Francisco Jones MD) Tea Senior Oct 06, 2017 11:41 Jose Francisco Jones MD Oct 06, 2017 17:56
--- NOTE | 2017-10-06 11:42 | RADRPT ---
EXAM DATE: 10/06/2017 9:11 AM EDT AGE/SEX: 62 years / Female INDICATIONS: Left lower leg abscess vs hematoma CLINICAL DATA: This is the patient's encounter. Patient reports that signs and symptoms have been pr esent for and indicates a pain score of . MEDICAL/SURGICAL HISTORY: RADIATION DOSE: CTDI (mGy) COMPARISON: No prior exams available for comparison. TECHNIQUE: Volumetric scanning of the was performed. Using automated exposure control and adjustme nt of the mA and/or kV according to patient size, radiation dose was kept as low as reasonably achiev able to obtain optimal diagnostic quality images. DICOM format image data is available electronicall y for review and comparison. FINDINGS: Patient has cellulitis in the left lower leg. There is a soft tissue mass subcutaneous tissues MRI ch aracteristics of a hematoma. This appear hematoma is not liquefied and cannot be drained potentially. Attempted drainage also significantly increase the risk of dissecting this apparent hematoma. Electronically signed by: Laureano Alvarado MD 10/06/2017 11:41 AM EDT
[2017-10-06] MEDS: EPOETIN ALFA 10,000 UNITS/ML VIAL IV PUSH PRN (14:30)
[2017-10-06] MEDS: SODIUM CHLOR 0.9% 1000 ML INJ 1,000 ML OTHER PRN (14:30)
[2017-10-06] MEDS: GELATIN 12 MM/7 MM FOAM TOP PRN (15:00)
[2017-10-07 04:04] VITALS: BP 160/77; PULSE 67; RESP 18; TEMP 98; O2SAT 96
[2017-10-07 08:00] VITALS: BP_SYST 163; BP_SYST 168; BP_DIAS 69; BP_DIAS 75; PULSE 63; PULSE 71; RESP 13; RESP 17; TEMP 97.6; TEMP 98; O2SAT 94; O2SAT 97
[2017-10-07] MEDS: CALCIUM ACETATE 667 MG CAP PO SCH (08:00)
--- NOTE | 2017-10-07 08:36 | HHI.DCPOC ---
Discharge Care Plan Diagnosis: (1) ESRD (end stage renal disease) on dialysis (2) Hematoma of leg Goals to Promote Your Health * To prevent worsening of your condition and complications * To maintain your health at the optimal level CONTINUE TO APPLY WARM COMPRESSES 4 TIMES A DAY TO SITE OF LEG SWELLING. Directions to Meet Your Goals Take your medications as prescribed Follow your dietary instruction Follow activity as directed Keep your appointments as scheduled Take your immunizations and boosters as scheduled If your symptoms worsen call your PCP, if no PCP go to Urgent Care Center or Emergency Room Smoking is Dangerous to Your Health. Avoid second hand smoke Call the 24-hour hour crisis hotline for domestic abuse at Corrie Smart MD R1 Oct 07, 2017 08:36
[2017-10-07 08:42] LABS: BICARBONATE 29.5 MEQ/L (21.0-32.0); CALCIUM 8.8 MG/DL (8.5-10.1); CREATININE 4.53 MG/DL (0.50-1.00)
[2017-10-07] MEDS: LEVOTHYROXINE SODIUM 25 MCG TAB PO SCH (09:00)
[2017-10-07] MEDS: cloNIDine HCL 0.1 MG TAB PO SCH (09:00)
[2017-10-07] MEDS: VITAMIN B CMPLX/VITC/FOLIC AC CAP PO SCH (09:00)
[2017-10-07] MEDS: CARVEDILOL 3.125 MG TAB PO SCH (09:00)
--- NOTE | 2017-10-07 09:05 | HHI.NPPN ---
Subjective General Problems: Anemia Renal Failure: Chronic, End Stage Renal Disease Interval History Drainage of leg lesion not done. Pain is controlled. She is to be discharged today. Objective Data Data Vital Signs Date Time Temp Pulse Resp B/P (MAP) Pulse Ox O2 Delivery O2 Flow Rate FiO2 10/07/17 08:00 97.6 63 17 168/69 (102) 97 10/07/17 04:04 98.0 67 18 160/77 (104) 96 10/06/17 23:33 98.0 66 18 140/68 (92) 92 10/06/17 20:07 98.5 76 17 141/67 (91) 94 10/06/17 16:00 98.2 70 12 149/70 (96) 99 10/06/17 11:20 98.6 64 18 126/73 (90) 94 -: 10/06/17 0900 10/07/17 0621 Physical Exam General Appearance: Well Developed, No Acute Distress, Comfortable, Malnourished Throat Throat Exam: Oral Mucosa [place] & Moist Neck Neck Exam: Neck Supple Pulmonary Resp Exam: Clear Bilaterally, Breath Sounds Equal Cardiology CV Exam: Regular, Normal Sinus Rhythm Gastrointestinal/Abdomen GI Exam: Soft, Non-Tender, Bowel Sounds Present Genitourinary Exam: Clear Urine Musculoskeletal MS Exam: Joints Intact, Normal Tone Integumentary Skin Exam: Warm, Dry Extremeties Extremities Exam: No Edema, Pedal Pulses Palpable Neurologic Neuro Exam: Alert, Awake, Oriented, Speech Clear, Moving All Extremities Psychiatric Psych Exam: Appropriate Responses Assessment/Plan Discussed Condition With: Patient Assessment Summary: Anemia of CKD, End Stage Renal Disease Problem List: (1) ESRD (end stage renal disease) on dialysis ICD Codes: N18.6 - End stage renal disease; Z99.2 - Dependence on renal dialysis Plan: Continue HD MWF Intermittent monitor labs. Avoid IVF administration High protein diet ordered if not NPO. AVF is patent. Outpatient HD arrangements in place at [place]. (2) Hematoma of leg ICD Codes: S80.10XA - Contusion of unspecified lower leg, initial encounter Plan: s/p trauma Off antibiotics. MRI reviewed. PRN Tylenol for pain control (3) Anemia ICD Codes: D64.9 - Anemia, unspecified Plan: Epogen has been ordered with dialysis (4) Bone metabolism disorder ICD Codes: E88.9 - Metabolic disorder, unspecified; M90.80 - Osteopathy in diseases classified elsewhere, unspecified site Plan: Low phosphorus, holding calcium acetate for now. She is intolerant to most other phosphorus binders. (5) HTN (hypertension) ICD Codes: I10 - Essential (primary) hypertension Status: Chronic Plan: Home medications were resumed including Coreg, Norvasc, clonidine. (6) Hypothyroidism ICD Codes: E03.9 - Hypothyroidism, unspecified Status: Chronic Plan: On Synthroid Problem Qualifiers (1) Hematoma of leg: Qualified Codes: S80.12XA - Contusion of left lower leg, initial encounter Jose Francisco Jones MD Oct 07, 2017 09:05
--- NOTE | 2017-10-07 10:51 | HHI.FPPN ---
Subjective Remarks Vitals stable. No events overnight. Drainage of leg was cancelled yesterday due to suspicion of hematoma congealment. Dialysis yesterday. Doing well, no acute complaints. (Corrie Smart MD R1) Objective Vitals Vital Signs Date Time Temp Pulse Resp B/P (MAP) Pulse Ox O2 Delivery O2 Flow Rate FiO2 10/07/17 08:00 98.0 71 13 163/75 (104) 94 10/07/17 04:04 98.0 67 18 160/77 (104) 96 10/06/17 23:33 98.0 66 18 140/68 (92) 92 10/06/17 20:07 98.5 76 17 141/67 (91) 94 10/06/17 16:00 98.2 70 12 149/70 (96) 99 10/06/17 11:20 98.6 64 18 126/73 (90) 94 I/O 10/06/17 10/06/17 10/06/17 10/07/17 10/07/17 10/07/17 07:00 15:00 23:00 07:00 15:00 23:00 Intake Total 60 ml 240 ml Balance 60 ml 240 ml Intake Oral 60 ml 240 ml # Voids 2 10 2 # Bowel Movements 1 (Corrie Smart MD R1) Result Diagram: 10/06/17 0900 10/07/17 0621 Objective Remarks O. CONSTITUTIONAL/GEN: normally nourished, in NAD. Looks > stated age. EYES: conjunctiva normal, PERRLA, EOMI. ENT: Many missing teeth. LUNGS: clear A-P, respiratory effort is normal. CARDIOVASCULAR: RR without murmur or gallop. No significant edema. GI/ABD: soft without masses, without organomegaly. BS + NEURO: No focal deficits. SKIN: Skin sallow HEME/LYMPH: no bruising, petechia or significant adenopathy MUSC: Left leg below knee shows swelling and dark erythema with extravasation of blood to ankle, foot and toes-stable from yesterday's exam. PSYCH/MENTAL STATUS: Alert.. (Corrie Smart MD R1) A/P Assessment and Plan 62 y/o F w/hx of CKD on dialysis being admitted to obs for treatment of left leg swelling. Likely secondary to hematoma. Patient has shown improvement. Antibiotics discontinued. Plan for discharge today, advise continued dialysis, supportive care, and follow-up with physicians. Discharge Planning DC today (Corrie Smart MD R1) Attending Attestation Patient seen and examined. Case reviewed and discussed with the resident team. Agree with plan of care as discussed with me and documented in the resident note. (Sofia Kinney MD) Problem List: (1) Hematoma of leg ICD Codes: S80.10XA - Contusion of unspecified lower leg, initial encounter Plan: Advised patient follow-up with physicians We will likely take some time to resolve, due to shear size of hematoma Continue dialysis (2) Hypothyroidism ICD Codes: E03.9 - Hypothyroidism, unspecified Status: Chronic Plan: Con't home levothyroxine (3) CKD (chronic kidney disease), stage V ICD Codes: N18.5 - Chronic kidney disease, stage 5 Status: Chronic Plan: Dialysis [facility] Nephrology consult (4) HTN (hypertension) ICD Codes: I10 - Essential (primary) hypertension Status: Chronic Plan: Con't home meds clonidine BID, carvedilol, amlodipine (Corrie Smart MD R1) Problem Qualifiers (1) Hematoma of leg: Qualified Codes: S80.12XA - Contusion of left lower leg, initial encounter Corrie Smart MD R1 Oct 07, 2017 10:51 Sofia Kinney MD Oct 07, 2017 15:23
== END 2017-10-07 13:11 | disposition home or self-care (01) ==
LOC: NEPK 08:45 → NEDA 12:43 → NEPHCDU 15:55
PROVIDERS: ADMIT Family Medicine; ATTEND Family Medicine
DX: L03.116 Cellulitis of left lower limb (principal); S80.12XA Contusion of left lower leg, initial encounter; E03.9 Hypothyroidism, unspecified; I13.2 Hypertensive heart and chronic kidney disease with heart failure and with stage 5 chronic kidney disease, or end stage renal disease; I50.9 Heart failure, unspecified; N18.6 End stage renal disease; D63.1 Anemia in chronic kidney disease; E83.52 Hypercalcemia; K42.9 Umbilical hernia without obstruction or gangrene; M71.22 Synovial cyst of popliteal space [Baker], left knee; M25.462 Effusion, left knee; Z99.2 Dependence on renal dialysis; Z79.899 Other long term (current) drug therapy; Z81.1 Family history of alcohol abuse and dependence; W22.09XA Striking against other stationary object, initial encounter
CPT/HCPCS: 73590; 73718; 80048; 80053; 80069; 80202; 84100; 85025; 85027; 85610; 85730; 87040; 90935; 93971; 96365; 96374; 96375; 99285; G0378; J3370; J7030; J7050; Q4081; 76140; G0257

== ENCOUNTER 2018-03-15 06:42 | Observation (INO) ==
[2018-03-15] MEDS ORDERED: Heparin 10,000 UNITS/10 ML Vial (for IV use) ONE (06:45)
[2018-03-15] MEDS ORDERED: Protamine Sulfate Inj 50 MG/5 ML Vial ONE (06:45)
[2018-03-15] MEDS ORDERED: Bupivacaine PF 0.5% Inj 10 ML Vial ONE ×2 (06:46→07:11)
[2018-03-15] MEDS ORDERED: Thrombin Topical 20,000 UNIT Spray Kit TOPICAL ONE ×2 (06:46→10:18)
[2018-03-15] MEDS ORDERED: Heparin/NS PF Inj 500 ML ONE (06:46)
[2018-03-15] MEDS ORDERED: Chlorhexidine Gluconate 2% 1 Pack (2 Cloths) TOPICAL ONE (07:07)
[2018-03-15] MEDS ORDERED: Metoprolol Tartrate 25 MG Tablet PO ONE (07:07)
--- NOTE | 2018-03-15 07:14 | P.PNVS ---
- Pre-operative Note Planned Procedure: LEFT UE access revision Interval History: Pt has maurilio feeling well; appropriately, anxious for surgery today. Had R chest catheter placed yesterday in preparation for not being able to use AVF for about a month. Brijesh HD yesterday. No other changes that would preclude OR today. Labs: pending Blood: T&S Imaging: duplex reviewed Orders: NPO VANC 1g IV OCTOR Post-operative Destination: PACU and then CPCU for observation overnight and HD tomorrow prior to d/c Operative site marked: Yes Consent: Informed consent has been obtained from Colette Huntley. I have explained the procedure in detail and discussed the risks, benefits, and potential complications. All questions have been answered. Patient Contact Information: pt doesn't want anyone called
[2018-03-15] MEDS ORDERED: Famotidine PF Inj 20 MG/2 ML Vial ONE (07:33)
[2018-03-15 07:46] LABS: Baso # (Auto) 0.1 th/mm3 (0.0-0.2); Baso % (Auto) 1.3 % (0.0-2.0); Eos # (Auto) 0.2 th/mm3 (0.0-0.4); Hematocrit 35.8 % (35.0-46.0); Hemoglobin 12.3 gm/dL (11.6-15.3); Lymph # (Auto) 0.4 th/mm3 (1.0-4.8); Lymph % (Auto) 6.9 % (9.0-44.0); Mean Corpuscular HGB Conc 34.3 % (32.0-36.0); Mean Corpuscular Hemoglobin 34.5 pg (27.0-34.0); Mean Corpuscular Volume 100.6 fL (80.0-100.0); Mean Platelet Volume 9.1 fL (7.0-11.0); Mono # (Auto) 0.5 th/mm3 (0.0-0.9); Mono % (Auto) 7.8 % (0.0-8.0); Neut # (Auto) 4.8 th/mm3 (1.8-7.7); Platelet Count 103 th/mm3 (150-450); Red Blood Count 3.56 mil/mm3 (4.00-5.30); Red Cell Distribution Width 15.2 % (11.6-17.2); White Blood Count 5.9 th/mm3 (4.0-11.0)
[2018-03-15 07:52] LABS: Activated Partial Thrombo Time 30.4 sec (23.4-31.7); INR 1.3 Ratio; Prothrombin Time 12.7 sec (9.8-11.6)
--- NOTE | 2018-03-15 07:53 | XR ---
EXAM DATE: 03/15/2018 7:46 AM EST AGE/SEX: 63 years / Female INDICATIONS: Evaluate for pneumonia, pneumothorax, and communicable diseases. Pre-op aneurysm. CLINICAL DATA: This is the patient's initial encounter. Patient reports that signs and symptoms have been present for 1 day and indicates a pain score of 0/10. MEDICAL/SURGICAL HISTORY: . Dialysis. . Catheter placed 03/14/28 for dialysis. [place] [facility] [place]. . FINDINGS: The heart is enlarged. There is a dialysis catheter in good position. The catheter enters via the rig ht internal jugular vein. There is minimal effusion at the right lung base. There is diffuse intersti tial prominence which appears similar to previous of 12/14/2016. Note is made of an old covered stent in the left subclavian vein. The visualized bony structures are intact. CONCLUSION: 1. Dialysis catheter in satisfactory position. 2. Advanced cardiomegaly with chronic appearing interstitial changes. 3. Minimal effusion at the left lung base. Electronically signed by: Stoney Alvarado MD 03/15/2018 7:52 AM EST
[2018-03-15] MEDS ORDERED: Sodium Chlor 0.9% Inj 500 ML IV.SIG SCH (08:00)
[2018-03-15 08:11] LABS: Calcium 9.9 mg/dL (8.5-10.1); Carbon Dioxide 24.9 meq/L (21.0-32.0); Potassium 4.4 meq/L (3.5-5.1)
[2018-03-15] MEDS ORDERED: Bisacodyl 10 MG Supp RECTAL PRN (10:44)
--- NOTE | 2018-03-15 10:44 | P.OP ---
- Preoperative Diagnosis (1) ESRD (end stage renal disease) on dialysis - Postoperative Diagnosis (1) ESRD (end stage renal disease) on dialysis Date of procedure: 03/15/18 Procedure: LEFT arm access revision (excision of aneurysmal segments and interposition with 6mm PTFE) Implants: 6mm PTFE Anesthesia: GETA Surgeon: Jose Sanchez MD Outside Sales Manager: Yaneth Mcmanus Estimated blood loss (mL): 100 IV fluids (mL): 500 Pathology: none sent Operation and Findings: aneursymal segment with old 6mm interposition PTFE Excised and replaced with 6mm PTFE + Doppler signals in wrist and good thrill after access needs to use catheter for a month
[2018-03-15] MEDS ORDERED: fentaNYL Citrate Inj 100 MCG/2 ML Ampul ONE (11:32)
--- NOTE | 2018-03-15 12:24 | MP ---
cc: Jose Sanchez MD DATE OF OPERATION: 03/15/2018 PREOPERATIVE DIAGNOSIS: Aneurysmal left upper extremity arteriovenous fistula. POSTOPERATIVE DIAGNOSIS: Aneurysmal left upper extremity arteriovenous fistula. PROCEDURE PERFORMED: Left upper extremity access revision (resection and interposition with 6 mm PTFE). ATTENDING SURGEON: Jose Sanchez MD ASSEMBLER CATERPILLAR SPIDER SURGEON: Yaneth Mcmanus. ANESTHESIA: General. INDICATIONS: The patient is a 61-year-old lady who has end-stage renal disease and an aneurysmal left upper extremity arteriovenous fistula that has been revised several times, both endovascularly and open. She presented to my clinic as a new patient with obvious aneurysmal degeneration and skin thinning. She was taken to the operating room for elective excision and replacement with a [place]-Abhishek. Preoperatively, she had a catheter placed for dialysis access. DESCRIPTION OF PROCEDURE: Informed consent was obtained from the patient. She was taken to the operating room and placed supine on the operating table. An appropriate timeout was taken to ensure the patient's identity, operative site and planned procedure. The administration of 1 gram of vancomycin was initiated prior to skin incision and will be discontinued after using a single preoperative dose. Everyone in the room agreed with timeout and we proceeded. Her left arm was prepped and draped and an incision was made along the course of the fistula. It was carried down to the brachial artery and the brachial artery dissected free proximal and distal to the anastomosis. The entire fistula was circumferentially dissected from the anastomosis of the brachial artery, all the way to the proximal cephalic vein. The patient was systemically heparinized with 3000 units of IV heparin. Proximal and distal control of the brachial artery were obtained with profunda clamps and distal control of the outflow cephalic vein was obtained with a profunda clamp and aneurysmal fistula was excised in totality. A 6 mm PTFE was brought to the field and sewn end-to-side to the brachial artery proximally and end to end of the cephalic vein distally with a running 5-0 Prolene suture. The completion, it was flushed and noted to be hemostatic with several repair sutures. There was a nice thrill in the fistula. Had a Doppler signal in the wrist. The heparin was reversed with protamine. The wound was made hemostatic. Some of the skin was excised to eliminate the redundancy to facilitate closure and the wound was closed with 2-0 Polysorb, 3-0 Polysorb and 4-0 Monocryl. The sponge and needle counts were correct at the end of the case. I was present and scrubbed for the entire procedure. MD BELLO Rose/ximena/yessica , 10:50 AM , 10:58 AM
[2018-03-15] MEDS: Calcium Acetate 667 MG Capsule PO SCH ×3 (13:00→17:39)
[2018-03-15] MEDS ORDERED: Acetaminophen 325 MG Tablet PO PRN (14:21)
[2018-03-15] MEDS ORDERED: Heparin 10,000 UNITS/10 ML Vial (for IV use) OTHER PRN ×2 (14:21)
[2018-03-15] MEDS ORDERED: Sod Chloride 0.9% Inj 1,000 ML OTHER PRN ×2 (14:21)
[2018-03-15] MEDS ORDERED: Gelatin 12 MM/7 MM Topical Foam TOPICAL PRN (14:21)
[2018-03-15] MEDS ORDERED: Albumin Human 25% Inj 100 ML IV.SIG PRN (14:21)
[2018-03-15] MEDS ORDERED: Sod Chloride 0.9% Inj 1,000 ML IV.CONT PRN (14:21)
[2018-03-15] MEDS: Morphine Sulfate Inj 2 MG/ML Vial IV.PUSH PRN ×2 (14:41→18:14)
--- NOTE | 2018-03-15 15:54 | ECG ---
Date Performed: 03/15/2018 Time Performed: 07:15:51 PTAGE: 63 years EKG: Sinus rhythm WITH OCCASIONAL SUPRAVENTRICULAR PREMATURE COMPLEXES BORDERLINE LEFT AXIS DEVIATION ST DEVIATION AND MODERATE T-WAVE ABNORMALITY, CONSIDER ANTEROLATERAL ISCHEMIA ABNORMAL ECG PREVIOUS TRACING : 11/03/2012 11.42 Compared to previous tracing, there are now anterior ischem ic changes present and anterolateral ischemic changes, whichare new. Clinical correlation is recommen ded DOCTOR: Ryan Lewis Interpretating Date/Time 03/15/2018 15:53:35
--- NOTE | 2018-03-15 16:53 | P.CONNP ---
<Bong Jiménez - Last Filed: 03/15/18 16:55> History of Present Illness Consult date: 03/15/18 Reason for Consult: ESRD on dialysis Primary Care Provider: Vincenzo Honeycutt Chief Complaint: AVF left arm access revision History of Present Illness: Patient is a 63 year old female admitted for an AVF left arm access revision. Access revision was done today. Patient has history of HTN and ESRD and get dialysis at [facility]. Patient had a PermCath placed for dialysis 03/14/2018. Patient is a former smoker. Expected discharge after dialysis tomorrow. Regular diet ordered for patient. Review of Systems All other systems reviewed negative except as stated in HPI PMFSH - History History Provided By: Patient - Tobacco History Second Hand Smoke Exposure: No Tobacco Use In Past 30 Days: No Smoking Status: Former smoker - Alcohol History How Often Do You Have a Drink Containing Alcohol: Monthly or less - Substance Use History Substance History: No History of Abuse - Travel History Recent Travel in the [facility] [place] Within the Last 8 Weeks: No Recent Travel Out of the Country Within the Last 8 Weeks: No Medications and Allergies Allergies Allergy/AdvReac Type Severity Reaction Status Date / Time penicillin G Allergy Severe Swelling Verified 03/15/18 07:24 of Lip/Tongue/Throat Home Medications Medication Instructions Recorded Confirmed Type Nephro-Luis Miguel 0.8 mg PO DAILY 03/15/18 03/15/18 History amlodipine 10 mg PO DAILY 03/15/18 03/15/18 History calcium acetate 667 mg PO TID 03/15/18 03/15/18 History carvedilol 3.125 mg PO BID 03/15/18 03/15/18 History clonidine 1 patch TRANSDERMAL QWEEK 03/15/18 03/15/18 History folic acid 0.8 mg PO DAILY 03/15/18 03/15/18 History levothyroxine 13 mcg PO DAILY 03/15/18 03/15/18 History Active Medications: Active Medications Acetaminophen (Tylenol) 650 mg PO UNSCH PRN PRN Reason: SEE LABEL COMMENTS Amlodipine Besylate (Norvasc) 10 mg PO DAILY [facility] Bisacodyl (Dulcolax Supp) 10 mg RECTAL DAILY PRN PRN Reason: SEVERE CONSITIPATION Calcium Acetate (Phoslo) 667 mg PO TID [facility] Carvedilol (Coreg) 3.125 mg PO BID [facility] Clonidine HCl (Catapress-Tts 0.1 Mg Patch.7d) 1 patch T-DERMAL Q7D [facility] Clonidine HCl (Catapres) 0.1 mg PO UNSCH PRN PRN Reason: SEE LABEL COMMENTS Diphenhydramine HCl (Benadryl) 25 mg PO UNSCH PRN PRN Reason: SEE LABEL COMMENTS Epoetin Tyron (Epogen Inj) 10,000 unit IV.PUSH UNSCH PRN PRN Reason: SEE LABEL COMMENTS Famotidine (Pepcid) 10 mg PO BID [facility] Gelatin (Gelfoam 12 Mm/7 Mm Topical) 1 foam TOPICAL PRN PRN PRN Reason: help stop bleeding from site Gentamicin Sulfate (Gentamicin Inj) 20 mg OTHER WITH DIALYSIS PRN PRN Reason: Dwell Gentamycin Lock Heparin Sodium (Porcine) (Heparin Inj) 5,000 units SQ Q8H [facility] Heparin Sodium (Porcine) (Heparin Inj) 8,000 units OTHER WITH DIALYSIS PRN PRN Reason: for machine prime Heparin Sodium (Porcine) (Heparin Inj) 1,000 units OTHER WITH DIALYSIS PRN PRN Reason: Dwell Heparin to Fill Catheter Hydromorphone HCl (Dilaudid) 2 mg PO Q4H PRN PRN Reason: PAIN SCALE 6 TO 10 Lactated Ringer's (Lr 1000 Ml Inj) 1,000 mls @ 30 mls/hr IV.SIG .Q24H [facility] Stop: 03/16/18 07:14 Last Admin: 03/15/18 08:02 Dose: Not Given Albumin Human (Flexbumin 25% Inj) 100 mls @ 60 mls/hr IV.SIG WITH DIALYSIS PRN PRN Reason: hypotension / volume replace Sodium Chloride (Ns Inj) 1,000 mls @ 0 mls/hr OTHER .Q0M PRN PRN Reason: for prime and rinse back Sodium Chloride (Ns Inj) 1,000 mls @ 200 mls/hr OTHER .Q5H PRN PRN Reason: for dialyzer flush PRN Sodium Chloride (Ns Inj) 1,000 mls @ 0 mls/hr IV.CONT .Q0M PRN PRN Reason: hypotension / volume replace Lactulose (Lactulose Liq) 30 ml PO DAILY PRN PRN Reason: SEVERE CONSITIPATION Mannitol (Mannitol Inj) 12.5 gm IV.PUSH UNSCH PRN PRN Reason: hypotension / volume replace Miscellaneous Information (Misc Nursing Information) 0 each OTHER UNSCH PRN PRN Reason: SEE LABEL COMMENTS Stop: 03/16/18 11:25 Morphine Sulfate (Morphine Inj) 2 mg IV.PUSH Q1H PRN PRN Reason: BREAKTHROUGH PAIN Last Admin: 03/15/18 14:41 Dose: 2 mg Nitroglycerin (Nitrostat Sl) 0.4 mg SL Q5M PRN PRN Reason: CHEST PAIN Non-Formulary Medication (Levothyroxine [Levothyroxine]) 13 mcg PO DAILY [facility] Ondansetron HCl (Zofran Inj) 4 mg IV.PUSH UNSCH PRN PRN Reason: NAUSEA OR VOMITING Oxycodone HCl (Roxicodone) 5 mg PO Q4H PRN PRN Reason: PAIN SCALE 1 TO 5 Senna/Docusate Sodium (Lou-Colace) 1 tab PO BID [facility] Sennosides (Senokot) 17.2 mg PO Q12H PRN PRN Reason: Moderate Constipation Sodium Chloride (Ns Flush) 5 ml IV.FLUSH PRN PRN PRN Reason: flush each lumen during HD Vitamin B Complex/Vit C/Folic Acid (Nephrocaps) 1 tab PO DAILY [facility] Exam Vital signs: Vital Signs 03/15/18 07:42 03/15/18 11:22 03/15/18 11:30 Temperature 97.5 F L 97.0 F L Pulse Rate 75 57 L 51 L Respiratory Rate 18 16 16 Blood Pressure 158/79 H 119/60 121/56 L Pulse Oximetry 97 93 L 94 L 03/15/18 11:45 03/15/18 12:00 03/15/18 12:13 Temperature 97.1 F L Pulse Rate 58 L 60 Respiratory Rate 17 17 Blood Pressure 118/58 L 118/58 L Pulse Oximetry 94 L 92 L 96 03/15/18 12:15 03/15/18 12:30 03/15/18 13:00 Temperature 98.8 F Pulse Rate 61 60 62 Respiratory Rate 18 18 18 Blood Pressure 136/74 137/76 139/73 Pulse Oximetry 99 99 97 03/15/18 13:01 Temperature 98.8 F Pulse Rate Respiratory Rate Blood Pressure Pulse Oximetry Intake & Output 03/14/18 03/15/18 03/15/18 18:59 06:59 18:59 Intake Total 250 / 250 Output Total 100 / 100 Balance 150 / 150 Weight 52.6 kg Intake: IV 0 / 0 Heparin/NS PF Inj 500 ML @ 0 0 / 0 mls/hr .ROUTE .[employer] [facility] Rx#: [id number] Anesthesia Amount 250 / 250 Output: Estimated Blood Loss 100 / 100 Other: Weight On Admission 52.6 kg - Constitutional no acute distress, thin - Routine HEENT Exam Head: Present: normocephalic Eye: Present: EOMI, PERRL ENT: Present: mucous membranes moist - Routine Neck Exam Present: trachea midline. Absent: JVD, tracheal deviation - Routine Respiratory Exam Absent: accessory muscle use, respiratory distress - Routine Cardiovascular Exam Present: RRR, S1, S2 - Routine Abdominal Exam Present: normoactive bowel sounds. Absent: tenderness - Routine Extremities Exam Present: pulses intact, normal capillary refill, AV fistula, vascular access. Absent: edema Comments: PermCath. AVF left arm. - Routine Neurological Exam Present: alert, oriented X3 Results - Lab Results 03/15/18 07:25 03/15/18 07:25 Most recent lab results Calcium 9.9 mg/dL (8.5-10.1) 03/15/18 07:25 Assessment and Plan - Assessment (1) ESRD (end stage renal disease) on dialysis Code(s): N18.6 - End stage renal disease; Z99.2 - Dependence on renal dialysis Status: Acute Plan: Patient gets dialysis MWF. Patient to be dialyzed tomorrow. Expected discharge after dialysis. Patient has PermCath in place for dialysis. Monitor fluid and electrolytes. Avoid Gadolinium. Protect left arm from IV and BP measurements. (2) Metabolic bone disease Code(s): E88.9 - Metabolic disorder, unspecified; M90.80 - Osteopathy in diseases classified elsewhere, unspecified site Status: Acute Plan: Patient on PhosLo. (3) Hypertension Code(s): I10 - Essential (primary) hypertension Status: Acute Plan: Monitor BP. <Jose Francisco Jones - Last Filed: 03/16/18 10:19> History of Present Illness Primary Care Provider: Vincenzo Honeycutt Medications and Allergies Active Medications: Active Medications Acetaminophen (Tylenol) 650 mg PO UNSCH PRN PRN Reason: SEE LABEL COMMENTS Amlodipine Besylate (Norvasc) 10 mg PO DAILY [facility] Bisacodyl (Dulcolax Supp) 10 mg RECTAL DAILY PRN PRN Reason: SEVERE CONSITIPATION Calcium Acetate (Phoslo) 667 mg PO TID [facility] Last Admin: 03/15/18 17:39 Dose: 667 mg Carvedilol (Coreg) 3.125 mg PO BID [facility] Last Admin: 03/15/18 20:51 Dose: 3.125 mg Clonidine HCl (Catapress-Tts 0.1 Mg Patch.7d) 1 patch T-DERMAL Q7D [facility] Last Admin: 03/15/18 20:53 Dose: Not Given Clonidine HCl (Catapres) 0.1 mg PO UNSCH PRN PRN Reason: SEE LABEL COMMENTS Last Admin: 03/15/18 21:33 Dose: 0.1 mg Diphenhydramine HCl (Benadryl) 25 mg PO UNSCH PRN PRN Reason: SEE LABEL COMMENTS Epoetin Tyron (Epogen Inj) 10,000 unit IV.PUSH UNSCH PRN PRN Reason: SEE LABEL COMMENTS Famotidine (Pepcid) 10 mg PO BID [facility] Last Admin: 03/15/18 20:52 Dose: 10 mg Gelatin (Gelfoam 12 Mm/7 Mm Topical) 1 foam TOPICAL PRN PRN PRN Reason: help stop bleeding from site Gentamicin Sulfate (Gentamicin Inj) 20 mg OTHER WITH DIALYSIS PRN PRN Reason: Dwell Gentamycin Lock Heparin Sodium (Porcine) (Heparin Inj) 5,000 units SQ Q8H [facility] Heparin Sodium (Porcine) (Heparin Inj) 8,000 units OTHER WITH DIALYSIS PRN PRN Reason: for machine prime Heparin Sodium (Porcine) (Heparin Inj) 1,000 units OTHER WITH DIALYSIS PRN PRN Reason: Dwell Heparin to Fill Catheter Hydromorphone HCl (Dilaudid) 2 mg PO Q4H PRN PRN Reason: PAIN SCALE 6 TO 10 Last Admin: 03/16/18 03:44 Dose: 2 mg Albumin Human (Flexbumin 25% Inj) 100 mls @ 60 mls/hr IV.SIG WITH DIALYSIS PRN PRN Reason: hypotension / volume replace Sodium Chloride (Ns Inj) 1,000 mls @ 0 mls/hr OTHER .Q0M PRN PRN Reason: for prime and rinse back Sodium Chloride (Ns Inj) 1,000 mls @ 200 mls/hr OTHER .Q5H PRN PRN Reason: for dialyzer flush PRN Sodium Chloride (Ns Inj) 1,000 mls @ 0 mls/hr IV.CONT .Q0M PRN PRN Reason: hypotension / volume replace Lactulose (Lactulose Liq) 30 ml PO DAILY PRN PRN Reason: SEVERE CONSITIPATION Levothyroxine Sodium (Synthroid) 12.5 mcg PO DAILY@0600 [facility] Last Admin: 03/16/18 05:29 Dose: 12.5 mcg Mannitol (Mannitol Inj) 12.5 gm IV.PUSH UNSCH PRN PRN Reason: hypotension / volume replace Miscellaneous (Pill Splitter) 0 each OTHER UNSCH PRN PRN Reason: SEE LABEL COMMENTS Miscellaneous Information ([facility] [facility]) 0 each OTHER UNSCH PRN PRN Reason: SEE LABEL COMMENTS Stop: 03/16/18 11:25 Morphine Sulfate (Morphine Inj) 2 mg IV.PUSH Q1H PRN PRN Reason: BREAKTHROUGH PAIN Last Admin: 03/15/18 18:14 Dose: 2 mg Nitroglycerin (Nitrostat Sl) 0.4 mg SL Q5M PRN PRN Reason: CHEST PAIN Ondansetron HCl (Zofran Inj) 4 mg IV.PUSH UNSCH PRN PRN Reason: NAUSEA OR VOMITING Oxycodone HCl (Roxicodone) 5 mg PO Q4H PRN PRN Reason: PAIN SCALE 1 TO 5 Senna/Docusate Sodium (Lou-Colace) 1 tab PO BID [facility] Last Admin: 03/15/18 20:52 Dose: 1 tab Sennosides (Senokot) 17.2 mg PO Q12H PRN PRN Reason: Moderate Constipation Sodium Chloride (Ns Flush) 5 ml IV.FLUSH PRN PRN PRN Reason: flush each lumen during HD Vitamin B Complex/Vit C/Folic Acid (Nephrocaps) 1 tab PO DAILY [facility] Exam Vital signs: Vital Signs 03/15/18 11:22 03/15/18 11:30 03/15/18 11:45 Temperature 97.0 F L Pulse Rate 57 L 51 L 58 L Respiratory Rate 16 16 17 Blood Pressure 119/60 121/56 L 118/58 L Pulse Oximetry 93 L 94 L 94 L 03/15/18 12:00 03/15/18 12:13 03/15/18 12:15 Temperature 97.1 F L Pulse Rate 60 61 Respiratory Rate 17 18 Blood Pressure 118/58 L 136/74 Pulse Oximetry 92 L 96 99 03/15/18 12:30 03/15/18 13:00 03/15/18 13:01 Temperature 98.8 F 98.8 F Pulse Rate 60 62 Respiratory Rate 18 18 Blood Pressure 137/76 139/73 Pulse Oximetry 99 97 03/15/18 13:30 03/15/18 14:00 03/15/18 14:30 Temperature Pulse Rate 65 71 65 Respiratory Rate 18 18 18 Blood Pressure 133/71 146/75 H 137/66 Pulse Oximetry 95 94 L 94 L 03/15/18 15:00 03/15/18 15:20 03/15/18 16:00 Temperature Pulse Rate 74 73 Respiratory Rate 18 16 Blood Pressure 138/68 144/69 H Pulse Oximetry 95 95 93 L 03/15/18 17:00 03/15/18 18:00 03/15/18 18:55 Temperature Pulse Rate 69 76 65 Respiratory Rate 20 18 Blood Pressure 147/70 H 148/80 H 129/62 Pulse Oximetry 97 97 03/15/18 20:00 03/15/18 21:53 03/15/18 22:25 Temperature 98.2 F 98.0 F Pulse Rate 64 80 77 Respiratory Rate 18 14 Blood Pressure 148/80 H 162/73 H Pulse Oximetry 95 03/15/18 23:00 03/16/18 00:00 03/16/18 01:00 Temperature 97.7 F Pulse Rate 75 78 74 Respiratory Rate 14 Blood Pressure 148/80 H Pulse Oximetry 98 03/16/18 02:00 03/16/18 03:00 03/16/18 04:00 Temperature 98.1 F Pulse Rate 66 67 75 Respiratory Rate 14 Blood Pressure 149/74 H Pulse Oximetry 96 03/16/18 05:00 03/16/18 06:00 03/16/18 07:00 Temperature 97.4 F L Pulse Rate 65 67 67 Respiratory Rate 16 Blood Pressure 153/79 H Pulse Oximetry 97 03/16/18 08:00 Temperature Pulse Rate 70 Respiratory Rate Blood Pressure Pulse Oximetry 97 Intake & Output 03/15/18 03/16/18 03/16/18 18:59 06:59 18:59 Intake Total 500 / 500 240 / 240 Output Total 100 / 100 Balance 400 / 400 240 / 240 Weight 52.6 kg 52 kg Intake: IV 0 / 0 Heparin/NS PF Inj 500 ML @ 0 0 / 0 mls/hr .ROUTE .[facility] Rx#: [id number] Oral 250 / 250 240 / 240 Anesthesia Amount 250 / 250 Output: Estimated Blood Loss 100 / 100 Other: # Voids 1 Weight On Admission 52.6 kg Results - Lab Results 03/16/18 03:41 03/16/18 03:41 Most recent lab results Calcium 9.1 mg/dL (8.5-10.1) D 03/16/18 03:41 Assessment and Plan - Assessment (1) ESRD (end stage renal disease) on dialysis Code(s): N18.6 - End stage renal disease; Z99.2 - Dependence on renal dialysis Status: Acute (2) Metabolic bone disease Code(s): E88.9 - Metabolic disorder, unspecified; M90.80 - Osteopathy in diseases classified elsewhere, unspecified site Status: Acute (3) Hypertension Code(s): I10 - Essential (primary) hypertension Status: Acute - Attending Attestation patient was seen and examined. Agree with above assessment and plan.
[2018-03-15] MEDS: Famotidine 20 MG Tablet PO SCH (20:52)
[2018-03-15] MEDS: Senna/Docusate Sodium 8.6/50 MG Tablet PO SCH (20:52)
[2018-03-15] MEDS ORDERED: amLODIPine 5 MG Tablet ONE (21:27)
[2018-03-16 04:22] LABS: Hematocrit 31.9 % (35.0-46.0); Hemoglobin 10.7 gm/dL (11.6-15.3); Mean Corpuscular HGB Conc 33.5 % (32.0-36.0); Mean Corpuscular Hemoglobin 33.9 pg (27.0-34.0); Mean Corpuscular Volume 101.2 fL (80.0-100.0); Mean Platelet Volume 9.3 fL (7.0-11.0); Platelet Count 84 th/mm3 (150-450); Red Blood Count 3.15 mil/mm3 (4.00-5.30); Red Cell Distribution Width 15.6 % (11.6-17.2); White Blood Count 4.4 th/mm3 (4.0-11.0)
[2018-03-16 04:43] LABS: Calcium 9.1 mg/dL (8.5-10.1); Carbon Dioxide 26.9 meq/L (21.0-32.0); Potassium 4.7 meq/L (3.5-5.1)
--- NOTE | 2018-03-16 07:56 | P.PNVS ---
Subjective Post Op Day #: 1 Procedure: L UE AVF revision Subjective/Hospital Course: pt looks goods mild hand swelling and arm swelling, no hand pain ready for HD today Objective Vital Signs / I&O: Vital Signs 03/15/18 11:22 03/15/18 11:30 03/15/18 11:45 Temperature 97.0 F L Pulse Rate 57 L 51 L 58 L Respiratory Rate 16 16 17 Blood Pressure 119/60 121/56 L 118/58 L Pulse Oximetry 93 L 94 L 94 L 03/15/18 12:00 03/15/18 12:13 03/15/18 12:15 Temperature 97.1 F L Pulse Rate 60 61 Respiratory Rate 17 18 Blood Pressure 118/58 L 136/74 Pulse Oximetry 92 L 96 99 03/15/18 12:30 03/15/18 13:00 03/15/18 13:01 Temperature 98.8 F 98.8 F Pulse Rate 60 62 Respiratory Rate 18 18 Blood Pressure 137/76 139/73 Pulse Oximetry 99 97 03/15/18 13:30 03/15/18 14:00 03/15/18 14:30 Temperature Pulse Rate 65 71 65 Respiratory Rate 18 18 18 Blood Pressure 133/71 146/75 H 137/66 Pulse Oximetry 95 94 L 94 L 03/15/18 15:00 03/15/18 15:20 03/15/18 16:00 Temperature Pulse Rate 74 73 Respiratory Rate 18 16 Blood Pressure 138/68 144/69 H Pulse Oximetry 95 95 93 L 03/15/18 17:00 03/15/18 18:00 03/15/18 18:55 Temperature Pulse Rate 69 76 65 Respiratory Rate 20 18 Blood Pressure 147/70 H 148/80 H 129/62 Pulse Oximetry 97 97 03/15/18 20:00 03/15/18 21:53 03/15/18 22:25 Temperature 98.2 F 98.0 F Pulse Rate 64 80 77 Respiratory Rate 18 14 Blood Pressure 148/80 H 162/73 H Pulse Oximetry 95 03/15/18 23:00 03/16/18 00:00 03/16/18 01:00 Temperature 97.7 F Pulse Rate 75 78 74 Respiratory Rate 14 Blood Pressure 148/80 H Pulse Oximetry 98 03/16/18 02:00 03/16/18 03:00 03/16/18 04:00 Temperature 98.1 F Pulse Rate 66 67 75 Respiratory Rate 14 Blood Pressure 149/74 H Pulse Oximetry 96 03/16/18 05:00 03/16/18 06:00 03/16/18 07:00 Temperature 97.4 F L Pulse Rate 65 67 81 Respiratory Rate 16 Blood Pressure 153/79 H Pulse Oximetry 97 Intake & Output 03/15/18 03/16/18 03/16/18 18:59 06:59 18:59 Intake Total 500 / 500 240 / 240 Output Total 100 / 100 Balance 400 / 400 240 / 240 Weight 52.6 kg 52 kg Intake: IV 0 / 0 Heparin/NS PF Inj 500 ML @ 0 0 / 0 mls/hr .ROUTE .[facility] Rx#: [id number] Oral 250 / 250 240 / 240 Anesthesia Amount 250 / 250 Output: Estimated Blood Loss 100 / 100 Other: # Voids 1 Weight On Admission 52.6 kg Exam: L UE mildly swollen incision ok + thrill hand ok Laboratory Results - last 24 hr 03/15/18 03/15/18 03/16/18 07:25 07:25 03:41 WBC 4.4 RBC 3.15 L Hgb 10.7 L Hct 31.9 L MCV 101.2 H MCH 33.9 MCHC 33.5 RDW 15.6 Plt Count 84 L MPV 9.3 Sodium 139 Potassium 4.4 Chloride 106 Carbon Dioxide 24.9 Anion Gap 8 BUN 34 H Creatinine 4.89 H Estimated GFR 9 L Random Glucose 97 Calcium 9.9 Blood Type A Positive Blood Type Recheck Required Antibody Screen Negative 03/16/18 03:41 WBC RBC Hgb Hct MCV MCH MCHC RDW Plt Count MPV Sodium 139 Potassium 4.7 Chloride 106 Carbon Dioxide 26.9 Anion Gap 6 BUN 41 H Creatinine 5.74 H Estimated GFR 7 L Random Glucose 89 Calcium 9.1 D Blood Type Blood Type Recheck Antibody Screen Assessment and Plan - Assessment (1) ESRD (end stage renal disease) on dialysis Code(s): N18.6 - End stage renal disease; Z99.2 - Dependence on renal dialysis Status: Acute - Plan POD#1 s/p L UE AVF revision 1. HD today 2. D/C after HD Discharge Planning: today
[2018-03-16] MEDS ORDERED: Vitamin B Complex/Vit C/Folic Tablet PO SCH (09:00)
[2018-03-16] MEDS ORDERED: amLODIPine 10 MG Tablet PO SCH (09:00)
--- NOTE | 2018-03-16 09:38 | P.DS ---
Discharge Summary - Admission Date 03/15/18 10:44 - Admission Diagnosis (1) ESRD (end stage renal disease) on dialysis - Discharge Date 03/16/18 - Discharge Diagnosis (1) ESRD (end stage renal disease) on dialysis Status: Acute - Summary Brief History from admission: 63/F with a Hx of ESRD on HD every M/W/F Pt admitted for surgical intervention- L UE AVF revision Procedure: L UE AVF revision Significant Findings: + thrill no hand pain Incision intact mild L UE arm swelling Abnormal Lab Results 03/16/18 03/16/18 03:41 03:41 WBC 4.4 RBC 3.15 L Hgb 10.7 L Hct 31.9 L MCV 101.2 H MCH 33.9 MCHC 33.5 RDW 15.6 Plt Count 84 L MPV 9.3 Sodium 139 Potassium 4.7 Chloride 106 Carbon Dioxide 26.9 Anion Gap 6 BUN 41 H Creatinine 5.74 H Estimated GFR 7 L Random Glucose 89 Calcium 9.1 D Hospital Course: 63/F with a Hx of ESRD on HD every M/W/ Pt admitted for surgical intervention- L UE AVF revision POD 1 Pt doing well Pt w/ expected post operative L UE arm swelling Incision intact + Thrill Pt denied hand pain Pt w/o complaints and is cleared for d/c post HD Arranged out pt F/U in 3-4 W E- [place] reviewed- No recent activity- Rx 3D post operative pain medication for out pt pain management - Discharge Instructions Any questions or concerns: Call [facility] at [facility] [phone] Discharge Plan - Discharge Disposition Patient Disposition: 01 Discharge Home - Discharge Condition Condition: Good - Discharge Order Discharge Orders: Discharge Order (Routine); Ordered 03/16/18 Ordered By: Blanca Reyes - Physicians Team Attending Provider: Jose Sanchez Other Providers: Jose Francisco Jones MD - Rxs /Orders / Referrals /Forms Prescriptions: Continue amlodipine 10 mg Tablet 10 mg PO DAILY calcium acetate 667 mg Capsule 667 mg PO TID carvedilol 3.125 mg Tablet 3.125 mg PO BID clonidine 0.1 mg/24 hr Patch Weekly 1 patch TRANSDERMAL QWEEK folic acid 0.8 mg Capsule 0.8 mg PO DAILY levothyroxine 13 mcg Capsule 13 mcg PO DAILY Nephro-Luis Miguel 0.8 mg PO DAILY Referrals: Vincenzo Honeycutt [Other] - See Instructions Jose Sanchez MD [Physician] - See Instructions (F/U in 3-4weeks ) - Post Discharge Care Plan Care Plan Goals: Discharge Care Plan Goals After Vascular Surgery Contact: Please call [phone] if you have any problems or have questions regarding your hospitalization. Directions to Meet Your Goals: 1. Diet: * You may resume a regular diet as you were eating at home before your admission. 2. Activity: * Increase your activity level gradually. * Keep surgical extremities elevated when at rest. This will help limit the swelling, bruising and discomfort normally present after surgery. * Walking is a good form of light exercise. Go for a walk at least 3 times per day. * No heavy lifting (lifting over 10 pounds) for at least 4 weeks from surgery. * Check with your surgeon to ensure when you are cleared for heavy lifting and full-intensity exercising. * Your strength will gradually improve. * No driving or operating motorized vehicles while on prescription pain medications. * No swimming until wounds fully healed. * Return to work when cleared by MD/PA/BUSINESS ADMINISTRATION TEACHER. 3. Bathing: Shower daily. * Gently let soap and water run over your incision and pat dry. Do not scrub the incision/wound. * Don't soak in a bath or submerge your incision in water until your incision is healed and evaluated by your physician at follow-up (usually two weeks). 4. Wound Care: INCISION SITE CARE INSTRUCTIONS: * You may leave your incision open to air. * Keep your incision clean and dry, unless showering. See above. * Moisture near the incision will cause the wound to open. * No lotions, creams, ointments, or powders on incisions until they are well- healed. * If you have glue over the incision(s), allow it to fall off naturally in 1-3 weeks * If present, kim/sutures will be removed 2-3 weeks after surgery during your follow-up clinic visit. * If present, change dressing/bandage when soaked/soiled as needed. * Observe wound daily, checking for signs and symptoms of infection including: foul odor, drainage from the incision, increased redness, increased pain at incision, or increased swelling. 5. Pain Control: Expect post-operative pain for 1-4 weeks after surgery. Your pain will improve gradually. * You may have been provided with a prescription for pain medication. Please take as directed, and be aware of side effects such as drowsiness, constipation and mild stomach discomfort. Pain pills on an empty stomach can cause nausea , so eat a small amount of food, such as crackers, when taking these pills. * Take [id number]-[id number] stool softeners (Colace or Senna) with your prescribed pain medication. * Acetaminophen (500mg every 6 hours) or Ibuprofen (400mg every 6 hours) may be used in conjunction with narcotics to relieve pain. DO NOT take more than 4 grams (4000mg) of Tylenol in one day, as this can harm your liver. DO NOT take ibuprofen IF: you have an allergy to non-steroidal anti-inflammatory medications, you are taking Coumadin, you have been told you have kidney problems, or you have a history of gastrointestinal bleeding or ulcers. DO NOT take more than 3.2 grams (3200mg) of ibuprofen in one day. * You may also find relief from using heat packs or pads or ice packs. 6. Bowel Regimen for Constipation: * People who undergo surgery are likely to develop post-operative constipation. Exposure to narcotics and changes in diet, fluid intake, and physical activity are known contributors to constipation. We recommend routine stool softeners and/ or laxatives after surgery for most patients. Start by taking one medication. You can increase as directed to relieve constipation. Stop taking these medications if you develop diarrhea. These medications are available over-the- counter and do not require a prescription: * Colace is a stool softener. We recommend starting at 100mg orally twice per day as needed for soft stools and increase to a maximum of 200mg twice daily as needed. * Senna is a laxative that works by keeping water in the intestine to help stool move along the intestinal tract. Take 1 tablet daily as needed for soft stool and increase to a maximum of 2 tablets twice daily as needed. Take Senna with two full glasses of water each time. * Miralax, Dulcolax and Milk of Magnesia are other negu-hoc-niucrlt laxatives that may be used as needed for post-operative constipation. * Drink 6-8 glasses of water per day. * Consume 15-30g of fiber per day: * Metamucil powder, 1-2 tablespoons 1-2 times/day OR Benefiber powder, 2 tablespoons 4 times/day. * Avoid straining. 7. Follow-Up: Do Not miss your follow-up appointment. Keep up with all your appointments and yearly check ups If you have any of the following symptoms please call [phone] immediately: Excessive swelling of the affected extremity Sudden onset of severe or unusual pain in the affected extremity Pain that gets worse or is not relieved by medication Warmth, redness, or swelling in the skin around the wound Foul drainage from incision Extensive bruising or discoloration Wound that opens up or pulls apart Fever above 101.5F or shaking chills Nausea or vomiting Severe diarrhea or severe constipation Dizziness or fainting Chest pain, shortness of breath, or increased work of breathing Weight gain >10 lbs over 3-4 days Inability to urinate for more than 6 hours Cloudy or foul smelling urine Urge to urinate more often than usual Symptoms to Report to Your Doctor: Temperature 101F or higher Pain uncontrolled by medication Drainage or foul odor from incision Extensive bruising or discoloration Chest pain Shortness of breath Nausea, vomiting or dizziness Call 911: Call 911 right away if you have: Sudden onset of chest pain that is not relieved by medications Shortness of breath
[2018-03-16] MEDS ORDERED: Heparin - SQ 10,000 UNITS/ML Vial SQ SCH (10:00)
--- NOTE | 2018-03-16 11:37 | P.PNNP ---
Subjective Interval history: Patient was seen, no distress. Had complaints of nausea. Patient had L UE AVF revision yesterday. Patient gets dialysis MWF. Patient was seen during dialysis. On 2K, blood flow rate of 350 ml/hr, UF goal of 1800. Patient has PermCath in place for dialysis. Patient to be discharged today after dialysis. <Bong Jiménez - Last Filed: 03/16/18 11:38> Physical Exam Vital signs: Vital Signs 03/15/18 11:45 03/15/18 12:00 03/15/18 12:13 Temperature 97.1 F L Pulse Rate 58 L 60 Respiratory Rate 17 17 Blood Pressure 118/58 L 118/58 L Pulse Oximetry 94 L 92 L 96 03/15/18 12:15 03/15/18 12:30 03/15/18 13:00 Temperature 98.8 F Pulse Rate 61 60 62 Respiratory Rate 18 18 18 Blood Pressure 136/74 137/76 139/73 Pulse Oximetry 99 99 97 03/15/18 13:01 03/15/18 13:30 03/15/18 14:00 Temperature 98.8 F Pulse Rate 65 71 Respiratory Rate 18 18 Blood Pressure 133/71 146/75 H Pulse Oximetry 95 94 L 03/15/18 14:30 03/15/18 15:00 03/15/18 15:20 Temperature Pulse Rate 65 74 Respiratory Rate 18 18 Blood Pressure 137/66 138/68 Pulse Oximetry 94 L 95 95 03/15/18 16:00 03/15/18 17:00 03/15/18 18:00 Temperature Pulse Rate 73 69 76 Respiratory Rate 16 20 Blood Pressure 144/69 H 147/70 H 148/80 H Pulse Oximetry 93 L 97 03/15/18 18:55 03/15/18 20:00 03/15/18 21:53 Temperature 98.2 F 98.0 F Pulse Rate 65 64 80 Respiratory Rate 18 18 14 Blood Pressure 129/62 148/80 H 162/73 H Pulse Oximetry 97 95 03/15/18 22:25 03/15/18 23:00 03/16/18 00:00 Temperature 97.7 F Pulse Rate 77 75 78 Respiratory Rate 14 Blood Pressure 148/80 H Pulse Oximetry 98 03/16/18 01:00 03/16/18 02:00 03/16/18 03:00 Temperature 98.1 F Pulse Rate 74 66 67 Respiratory Rate 14 Blood Pressure 149/74 H Pulse Oximetry 96 03/16/18 04:00 03/16/18 05:00 03/16/18 06:00 Temperature Pulse Rate 75 65 67 Respiratory Rate Blood Pressure Pulse Oximetry 03/16/18 07:00 03/16/18 08:00 Temperature 97.4 F L Pulse Rate 67 70 Respiratory Rate 16 Blood Pressure 153/79 H Pulse Oximetry 97 97 Intake & Output 03/15/18 03/16/18 03/16/18 18:59 06:59 18:59 Intake Total 500 / 500 240 / 240 Output Total 100 / 100 Balance 400 / 400 240 / 240 Weight 52.6 kg 52 kg Intake: IV 0 / 0 Heparin/NS PF Inj 500 ML @ 0 0 / 0 mls/hr .ROUTE [facility] Rx#: [id number] Oral 250 / 250 240 / 240 Anesthesia Amount 250 / 250 Output: Estimated Blood Loss 100 / 100 Other: # Voids 1 Weight On Admission 52.6 kg - Constitutional no acute distress - Routine HEENT Exam Head: Present: normocephalic Eye: Present: EOMI, PERRL ENT: Present: mucous membranes moist - Routine Neck Exam Present: trachea midline. Absent: JVD, tracheal deviation - Routine Respiratory Exam Present: CTA bilaterally. Absent: accessory muscle use, respiratory distress - Routine Cardiovascular Exam Present: RRR - Routine Abdominal Exam Present: normoactive bowel sounds. Absent: tenderness - Routine Extremities Exam Present: AV fistula, vascular access. Absent: edema Comments: AVF left arm. - Routine Neurological Exam Present: alert, oriented X3 - Routine Psychiatric Exam Present: normal affect <Bong Jiménez - Last Filed: 03/16/18 11:38> Vital signs: Vital Signs 03/15/18 18:55 03/15/18 20:00 03/15/18 21:53 Temperature 98.2 F 98.0 F Pulse Rate 65 64 80 Respiratory Rate 18 18 14 Blood Pressure 129/62 148/80 H 162/73 H Pulse Oximetry 97 95 03/15/18 22:25 03/15/18 23:00 03/16/18 00:00 Temperature 97.7 F Pulse Rate 77 75 78 Respiratory Rate 14 Blood Pressure 148/80 H Pulse Oximetry 98 03/16/18 01:00 03/16/18 02:00 03/16/18 03:00 Temperature 98.1 F Pulse Rate 74 66 67 Respiratory Rate 14 Blood Pressure 149/74 H Pulse Oximetry 96 03/16/18 04:00 03/16/18 05:00 03/16/18 06:00 Temperature Pulse Rate 75 65 67 Respiratory Rate Blood Pressure Pulse Oximetry 03/16/18 07:00 03/16/18 08:00 Temperature 97.4 F L Pulse Rate 67 70 Respiratory Rate 16 Blood Pressure 153/79 H Pulse Oximetry 97 97 Intake & Output 03/15/18 03/16/18 03/16/18 18:59 06:59 18:59 Intake Total 500 / 500 240 / 240 Output Total 100 / 100 1500 / 1500 Balance 400 / 400 240 / 240 -1500 / -1500 Weight 52.6 kg 52 kg Intake: IV 0 / 0 Heparin/NS PF Inj 500 ML @ 0 0 / 0 mls/hr .ROUTE [facility] Rx#: [id number] Oral 250 / 250 240 / 240 Anesthesia Amount 250 / 250 Output: Hemodialysis Amount 1500 / 1500 Estimated Blood Loss 100 / 100 Other: # Voids 1 Weight On Admission 52.6 kg <Jose Francisco Jones - Last Filed: 03/16/18 18:46> Assessment and Plan - Assessment (1) ESRD (end stage renal disease) on dialysis Code(s): N18.6 - End stage renal disease; Z99.2 - Dependence on renal dialysis Status: Acute Plan: Patient gets dialysis MWF. Patient was seen during dialysis. On 2K, blood flow rate of 350 ml/hr, UF goal of 1800. Patient has PermCath in place for dialysis. Protect left arm from IV and BP measurements. Monitor fluid and electrolytes. Avoid Gadolinium. Expected discharge after dialysis. (2) Metabolic bone disease Code(s): E88.9 - Metabolic disorder, unspecified; M90.80 - Osteopathy in diseases classified elsewhere, unspecified site Status: Acute Plan: Patient on PhosLo. (3) Hypertension Code(s): I10 - Essential (primary) hypertension Status: Acute Plan: Monitor BP. <Bong Jiménez - Last Filed: 03/16/18 11:38> - Assessment (1) ESRD (end stage renal disease) on dialysis Code(s): N18.6 - End stage renal disease; Z99.2 - Dependence on renal dialysis Status: Acute (2) Metabolic bone disease Code(s): E88.9 - Metabolic disorder, unspecified; M90.80 - Osteopathy in diseases classified elsewhere, unspecified site Status: Acute (3) Hypertension Code(s): I10 - Essential (primary) hypertension Status: Acute - Attending Attestation patient was seen and examined during dialysis. Agree with above assessment and plan. <Jose Francisco Jones - Last Filed: 03/16/18 18:46>
[2018-03-16] MEDS: Famotidine 20 MG Tablet PO SCH (12:46)
[2018-03-16] MEDS: Calcium Acetate 667 MG Capsule PO SCH ×2 (12:46→13:23)
[2018-03-16] MEDS: Senna/Docusate Sodium 8.6/50 MG Tablet PO SCH (12:46)
== END 2018-03-16 15:30 | disposition home or self-care (01) ==
LOC: HCVO 06:42 → HSDI 06:42 → HCIS 22:26
PROVIDERS: ADMIT Surgery; ATTEND Surgery